=== PATIENT | male | born 1940 | race Caucasian/White ===

== ENCOUNTER → 2017-11-11 10:41 | Outpatient (CLI) | payer MEDICARE, SELFPAY ==
[2017-11-11 11:04] LABS: Add Manual Diff / Slide Review NO; Basophils Percent Auto 1.2 % (0-2); Hemoglobin 15.6 g/dL (13.5-17.5); Lymphocytes Percent Auto 19.7 % (25-40); Mean Corpuscular HGB Conc 36.2 % (30-36); Mean Corpuscular Hemoglobin 33.2 PG (26-34); Mean Corpuscular Volume 91.7 fL (80-100); Monocytes Percent Auto 9.8 % (3-14); Neutrophils Absolute Auto 4800 /uL (3000-5900); Neutrophils Percent Auto 67.3 % (50-75); Platelet Count 207 X10^3/uL (150-400); Red Blood Cell Count 4.69 X10^6/uL (4.5-5.9); Red Cell Distribution Width 12.6 % (11.6-14.8); White Blood Cell Count 7.1 X10^3/uL (4.5-11.0)
[2017-11-11 11:30] LABS: Alanine Aminotransferase 33 IU/L (21-72); Albumin 4.4 g/dL (3.5-5.0); Albumin Globulin Ratio 1.8 (1.0-2.8); Alkaline Phosphatase 50 U/L (38-126); Aspartate Aminotransferase 25 IU/L (17-59); BUN Creatinine Ratio 18.8 (6-22); Bilirubin Total 0.9 mg/dL (0.2-1.3); Blood Urea Nitrogen 15 mg/dL (9-20); Calcium 10.1 mg/dL (8.4-10.2); Carbon Dioxide 29 mmol/L (22-32); Chloride 100 mmol/L (98-107); Estimated Glomerular Filt Rate > 60.0 mL/min (>60); Globulin 2.4 g/dL (1.7-4.1); Glucose 86 mg/dL (80-110); HEMOLYSIS < 15 (0-50); Potassium 4.4 mmol/L (3.4-5.1); Sodium 139 mmol/L (137-145); Total Protein 6.8 g/dL (6.3-8.2)
[2017-11-11 11:57] LABS: Carcinoembryonic Antigen 0.5 ng/mL (0.1-3.0)
== END ==
PROVIDERS: Family Provider Internal Medicine; PCP Internal Medicine; Visit Provider Internal Medicine
DX: I10 Essential (primary) hypertension (principal); I48.0 Paroxysmal atrial fibrillation; C21.8 Malignant neoplasm of overlapping sites of rectum, anus and anal canal
CPT/HCPCS: 36415; 80053; 82378; 85025

== ENCOUNTER 2018-03-16 10:29 | Emergency (ER) | payer MEDICARE, SELFPAY ==
[2018-03-16 10:37] VITALS: BP 158/70; PULSE 79; RESP 22; TEMP 36.6; O2SAT 98; BMI 24.3
--- NOTE | 2018-03-16 11:06 | ED_ITS ---
HPI - Back Pain/Injury General Chief Complaint: Back Pain/Injury Stated Complaint: SCIATICA PAIN Time Seen by Provider: 03/16/18 10:46 Source: patient Mode of arrival: ambulatory Limitations: no limitations History of Present Illness HPI Narrative: Patient is 77-year-old male who presents with left-sided back pain. He says is radiating down his leg. It has been doing so for the last 6 days. He says it started when the power went out he had walked up 3 flights of stairs 5 times with groceries. He did not fall. He said the next day he woke up and noticed his back was very stiff. He has been taking 400 mg of ibuprofen every 4 hr without any relief. He has tried heat and ice as well as nothing seems to be helping. MD Complaint: back pain Related Data Previous Rx's Medication Instructions Recorded cyclobenzaprine 5 mg PO Q12H PRN #10 tab 03/16/18 prednisone 20 mg PO DAILY #5 tab 03/16/18 Allergies Allergy/AdvReac Type Severity Reaction Status Date / Time INGREDIENT: NDA - NO KNOWN Allergy Unknown Uncoded 06/30/17 12:00 DRUG ALLERGIES Review of Systems Review of Systems GENERAL: Denies chills,fever HEENT: Denies throat pain RESPIRATORY: Denies dyspnea, cough, wheezing CARDIOVASCULAR: Denies chest pain, palpitations GASTROINTESTINAL: Denies nausea, vomiting MUSCULOSKELETAL: See HPI SKIN: No rash, no laceration, no pruritus NEUROLOGIC: Denies weakness, dizziness, headache, numbness 8 point review of systems is negative except for those stated above and HPI PFSH Medical History Healthy adult (Acute) Social History Smoking Status: Current every day smoker Comment: Dr. Ramirez PCP Exam Initial Vital Signs Initial Vital Signs: Vital Signs Temperature 97.9 F 03/16/18 10:37 Pulse Rate 79 03/16/18 10:37 Respiratory Rate 22 03/16/18 10:37 Blood Pressure 158/70 H 03/16/18 10:37 Pulse Oximetry 98 03/16/18 10:37 GENERAL: Alert elderly male in [facility] appears uncomfortable HEENT: Head atraumatic,EOMI, pupils reactive CARDIOVASCULAR: Regular rate and rhythm without murmurs, rubs or gallops. RESPIRATORY: Breath sounds equal bilaterally, no wheezes rales or rhonchi. ABDOMEN: Soft, nontender. Normoactive bowel sounds all 4 quadrants. No guarding or rebound. : No CVA tenderness EXTREMITIES: Normal range of motion, no clubbing or edema. Neurovascularly intact BACK: No midline or vertebral tenderness left lumbar pain and left buttock pain NEUROLOGICAL: Alert and oriented x4.Normal gait and speech. Cranial nerves II through XII grossly intact. SKIN: Warm, dry, no laceration, no petechiae, no rashes or lesions. Course Orders Ordered: Discontinued Medications Ketorolac Tromethamine (Toradol) 15 mg IM NOW ONE Stop: 03/16/18 10:59 Last Admin: 03/16/18 11:12 Dose: 15 mg Vital Signs - 8 hr 03/16/18 11:36 Pulse Rate 69 Respiratory Rate 15 Blood Pressure [Left Arm] 138/77 Pulse Oximetry 98 Discharge Plan Departure Patient Disposition: Home Clinical Impression: Acute left-sided back pain with sciatica Discharge Date/Time: 03/16/18 11:42 Interventions: ED Discharge Assessment Last Done: 03/16/18 11:41 Instructions: DI for Back Pain With Sciatica Activity Restrictions/Additional Instructions: *You have been diagnosed with left-sided back pain with sciatic *What to do: Light activity is encouraged, no strenuous activity, you may require physical therapy if no improvement *Continue to take medications as directed Motrin 400-600 mg every 6-8 hours if needed for mild pain Flexeril 1 tab every 12 hr if needed for severe muscle spasm. This does cause drowsiness do not drive Prednisone 20 mg once a day for 5 days *Follow up with your primary care provider in 2-3 days *Return to ER if you should have increasing pain, numbness, tingling or any new , worsening or concerning symptoms Prescriptions: New prednisone 20 mg tablet 20 mg PO DAILY Qty: 5 RF: 0 cyclobenzaprine 5 mg tablet 5 mg PO Q12H PRN (Reason: muscle spasm) Qty: 10 RF: 0 Referrals: Jerry Corral MD [Primary Care Provider] -
[2018-03-16] MEDS: KETOROLAC 60 MG/2 ML VIAL 15 MG IM (11:12)
[2018-03-16 11:36] VITALS: BP 138/77; PULSE 69; RESP 15; O2SAT 98
== END 2018-03-16 11:42 | disposition home or self-care (01) ==
PROVIDERS: Emergency Provider Emergency Medicine; Family Provider Internal Medicine; PCP Internal Medicine
DX: M54.42 Lumbago with sciatica, left side (principal)
CPT/HCPCS: 96372; 99282; 99283; J1885

== ENCOUNTER → 2018-11-07 07:34 | Outpatient (CLI) | payer MEDICARE, SELFPAY ==
[2018-11-07 08:44] LABS: Add Manual Diff / Slide Review NO; Basophils Absolute Auto 100 /uL (0-100); Basophils Percent Auto 1.6 % (0-2); Eosinophils Absolute Auto 100 /uL (0-450); Eosinophils Percent Auto 2.2 % (2-4); Hematocrit 45.1 % (41-53); Hemoglobin 15.8 g/dL (13.5-17.5); Lymphocytes Absolute Auto 1700 /uL (1100-4500); Lymphocytes Percent Auto 29.1 % (25-40); Mean Corpuscular HGB Conc 35.1 % (30-36); Mean Corpuscular Hemoglobin 31.9 PG (26-34); Monocytes Absolute Auto 600 /uL (0-900); Monocytes Percent Auto 10.1 % (3-14); Neutrophils Absolute Auto 3300 /uL (1500-7000); Platelet Count 217 X10^3/uL (150-400); Red Blood Cell Count 4.96 X10^6/uL (4.5-5.9); Red Cell Distribution Width 13.4 % (11.6-14.8); White Blood Cell Count 5.8 X10^3/uL (4.5-11.0)
[2018-11-07 08:56] LABS: HEMOLYSIS < 15 (0-50)
[2018-11-07 09:00] LABS: Alanine Aminotransferase 13 IU/L (21-72); Albumin 4.5 g/dL (3.5-5.0); Albumin Globulin Ratio 1.6 (1.0-2.8); Alkaline Phosphatase 46 U/L (38-126); Aspartate Aminotransferase 21 IU/L (17-59); Bilirubin Total 0.9 mg/dL (0.2-1.3); Blood Urea Nitrogen 14 mg/dL (9-20); Carbon Dioxide 26 mmol/L (22-32); Estimated Glomerular Filt Rate > 60.0 mL/min (>60); Globulin 2.9 g/dL (1.7-4.1); Glucose 84 mg/dL (80-110); Potassium 4.3 mmol/L (3.4-5.1); Sodium 136 mmol/L (137-145); Total Protein 7.4 g/dL (6.3-8.2)
[2018-11-07 09:08] LABS: Chloride 98 mmol/L (98-107)
[2018-11-07 09:30] LABS: Carcinoembryonic Antigen 0.7 ng/mL (0.1-3.0)
== END ==
PROVIDERS: PCP Internal Medicine; Visit Provider Internal Medicine
DX: I10 Essential (primary) hypertension (principal); I48.0 Paroxysmal atrial fibrillation; C21.8 Malignant neoplasm of overlapping sites of rectum, anus and anal canal
CPT/HCPCS: 36415; 80053; 82378; 85025

== ENCOUNTER 2018-12-27 08:29 | Inpatient (IN) | payer MEDICARE, SELFPAY ==
[2018-12-27] VITALS (8 sets, daily range): BP systolic 101–145; BP diastolic 52–95; PULSE 63–124; RESP 16–37; TEMP 36.4–36.8; O2SAT 94–98; BMI 24.8
--- NOTE | 2018-12-27 08:48 | ED_ITS ---
HPI - Neuro Symptoms/Deficit General Chief Complaint: Neuro Symptoms/Deficit Stated Complaint: left side chest injury/slurred speach x1day Time Seen by Provider: 12/27/18 08:30 Source: patient and family Mode of arrival: Family Vehicle Limitations: no limitations History of Present Illness HPI Narrative: 78-year-old male, daily smoker with history of hypertension and AFib presents with his and another family member for evaluation of stroke- like symptoms. The patient was in his normal state of health until about 10:00 p.m. last night when he fell. It was a mechanical fall and he tripped and struck the left side of his forehead. He has full recall and denies any loss of consciousness nor nausea or vomiting. He was evaluated by his whom noted left-sided facial droop and trouble with speech. Patient refused transport last night but she was able to convince him to come in today. His pain is only on the left side of his anterior chest consistent with rib injury. His chief complaint and that which is noticed by the family is of some slurring of speech, facial droop and left-sided facial numbness. Patient had been on Eliquis until about 1 year ago but was taken off as he was having complications of bleeding from his stoma. On Anticoagulants: Yes (asa) Related Data Home Medications Medication Instructions Recorded Confirmed amlodipine 10 mg PO DAILY 12/27/18 12/27/18 ascorbic acid (vitamin C) 1,000 mg PO DAILY 12/27/18 12/27/18 aspirin 325 mg PO DAILY 12/27/18 12/27/18 cholecalciferol (vitamin D3) 4,000 unit PO DAILY 12/27/18 12/27/18 [Vitamin D3] losartan 50 mg PO DAILY 12/27/18 12/27/18 metoprolol tartrate 25 mg PO BID 12/27/18 12/27/18 montelukast 10 mg PO DAILY 12/27/18 12/27/18 triamterene-hydrochlorothiazid 0.5 tab PO DAILY 12/27/18 12/27/18 Allergies Allergy/AdvReac Type Severity Reaction Status Date / Time No Known Drug Allergies Allergy Verified 12/27/18 11:58 Review of Systems Constitutional Constitutional: Denies chills, Denies fatigue, Denies fever(s), Denies frequent falls, Denies lethargy and Reports weakness Eyes Eyes: Denies change in vision, Denies eye discharge, Denies irritation and Denies loss of vision ENT Ears, Nose, Mouth, and Throat: Denies change in voice, Denies dizziness, Denies neck pain, Denies sore throat and Denies throat swelling Cardiovascular Cardiovascular: Denies chest pain, Denies irregular heart rhythm, Denies lightheadedness, Denies palpitations, Denies dyspnea, Denies dyspnea on exertion and Denies orthopnea Respiratory Respiratory: Denies cough, Denies dyspnea, Denies dyspnea on exertion and Denies wheezing Gastrointestinal Gastrointestinal: Denies abdominal pain, Denies change in bowel habits, Denies diarrhea, Denies nausea and Denies vomiting Genitourinary Genitourinary: Denies hematuria, Denies flank pain, Denies urinary incontinence and Denies urinary urgency Musculoskeletal Musculoskeletal: Denies back pain, Denies muscle weakness, Denies neck pain, Denies numbness and Denies tingling Integumentary/Breasts Skin/Breast: Denies pruritus, Denies erythema, Denies rash and Denies wounds Neurologic Neurologic: Reports abnormal speech, Denies behavioral changes, Denies confusion, Denies dizziness, Denies frequent falls, Reports focal weakness, Denies loss of vision, Denies numbness, Denies tingling and Reports weakness Psychiatric Psychiatric: Denies anxiety, Denies behavioral changes, Denies confusion, Denies depression, Denies homicidal ideation and Denies suicidal ideation Endocrine Endocrine: Denies fatigue, Denies flushing and Denies palpitations Hematologic/Lymphatic Hematologic/Lymphatic: Denies easy bruising Allergic/Immunologic Allergic/Immunologic: Denies urticaria, Denies throat swelling and Denies wheezing [facility] Medical History (Updated 12/27/18 @ 12:32 by Aidan Jeffery DO) Colon cancer (Acute) HTN (hypertension) (Acute) Paroxysmal atrial fibrillation (Acute) Surgical History (Updated 12/27/18 @ 12:32 by Aidan Jeffery DO) H/O total colectomy (Acute) Social History household members: spouse Smoking Status: Former smoker Social History household members: spouse Smoking Status: Former smoker Exam Narrative Exam Narrative: GENERAL: [78] year old patient appears stated age. Well- nourished, well-developed patient, in mild distress. HEAD: Atraumatic. Normocephalic. EYES: Pupils equal round and reactive. Extraocular motions intact. No scleral icterus. No injection or drainage. ENT: Nose without bleeding, purulent drainage. Throat without erythema, tonsillar hypertrophy or exudate. Airway patent. NECK: Trachea midline. Non tender CARDIOVASCULAR: Tachycardic and irregular rhythm without murmurs, gallops, or rubs. RESPIRATORY: Clear to auscultation. Breath sounds equal bilaterally. No wheezes, rales, or rhonchi. GASTROINTESTINAL: Abdomen soft, non-tender, nondistended. EXTREMITIES: No edema or joint tenderness. BACK: Nontender without deformity or crepitance. No flank tenderness. NEURO: AOx3. SKIN: No rash or erythema of visible areas Initial Vital Signs Initial Vital Signs: Vital Signs Temperature 97.5 F L 12/27/18 08:39 Pulse Rate 106 H 12/27/18 08:39 Respiratory Rate 30 H 12/27/18 08:39 Blood Pressure 145/95 H 12/27/18 08:39 Pulse Oximetry 96 12/27/18 08:39 Scores NIH Stroke Scale Level of Conciousness: Alert, keenly responsive Ask month/age: Answers both questions correctly. Open/close eyes, close hand: Performs both tasks correctly Best gaze horizontal: Normal Visual ramires: No visual loss Facial palsy: Partial paralysis, total or near total paralysis of lower face Left arm drift: Drifts down, not to bed Right arm drift: No drift for full 10 sec Left leg drift: No drift for full 10 sec Right leg drift: No drift for full 10 sec Limb ataxia: Absent Sensory on face/arms/legs: Mild to moderate sensory loss, can tell touch Best language: No aphasia, normal Dysarthria: Mild to mod,some slurring Extinction or inattention: No abnormality Total NIH Stroke scale score: 5 Course Orders Ordered: Acetaminophen (Tylenol) 650 mg PO Q6HR PRN PRN Reason: As Needed for Fever/Mild Pain Amlodipine Besylate (Norvasc) 10 mg PO DAILY [facility] Ascorbic Acid (Vitamin C) 1,000 mg PO DAILY [facility] Heparin Sodium (Porcine) (Heparin) 5,000 unit SUBCUT BID [facility] Sodium Chloride (Normal Saline 0.9%) 1,000 mls @ 150 mls/hr IV CONT VINCENT Last Admin: 12/27/18 17:44 Dose: 150 mls/hr Documented by: Infusion: 12/27/18 17:44 Dose: 0 mls/hr Documented by: Infusion: 12/27/18 11:43 Dose: 0 mls/hr Documented by: Admin: 12/27/18 09:00 Dose: 150 mls/hr Documented by: ZEENAT Losartan Potassium (Cozaar) 50 mg PO DAILY [facility] Metoprolol Tartrate (Lopressor) 50 mg PO BID [facility] Montelukast Sodium (Singulair) 10 mg PO DAILY [facility] Vitamin D (Vitamin D3) 4,000 unit PO DAILY [facility] Discontinued Medications Metoprolol Tartrate (Lopressor) 25 mg PO NOW ONE Stop: 12/27/18 13:15 Last Admin: 12/27/18 13:39 Dose: 25 mg Documented by: AVILA Consultations Consultation #1: hospitalist happy to accept Vital Signs Vital signs: Vital Signs - 8 hr 12/27/18 08:39 12/27/18 09:36 Temperature 97.5 F L Pulse Rate 124 H 105 H Respiratory Rate 18 20 Blood Pressure 145/95 H Blood Pressure [Left Arm] 145/95 H 131/92 H Pulse Oximetry 98 96 MDM - Neuro Symptoms/Deficit Lab Data Result diagrams: 12/27/18 08:40 12/27/18 08:40 Labs: Lab Results 12/27/18 12/27/18 12/27/18 Range/Units 08:40 08:40 08:40 WBC 8.0 (4.5-11.0) X10^3/uL RBC 5.12 (4.5-5.9) X10^6/uL Hgb 16.5 (13.5-17.5) g/dL Hct 46.7 (41-53) % MCV 91.2 (80-100) fL MCH 32.3 (26-34) PG MCHC 35.4 (30-36) % RDW 13.2 (11.6-14.8) % Plt Count 220 (150-400) X10^3/uL Neut % (Auto) 66.4 (50-75) % Lymph % (Auto) 23.2 L (25-40) % [place] % (Auto) 8.1 (3-14) % Eos % (Auto) 1.1 L (2-4) % Baso % (Auto) 1.2 (0-2) % Neut # (Auto) 5300 (1134-3573) /uL Lymph # (Auto) 1800 (0669-6642) /uL [place] # (Auto) 600 (0-900) /uL Eos # (Auto) 100 (0-450) /uL Baso # (Auto) 100 (0-100) /uL PT 12.0 (10.1-12.7) SECONDS INR 1.0 (0.9-1.3) APTT 31 (26.4-36.2) SECONDS Sodium 137 (137-145) mmol/L Potassium 3.9 (3.4-5.1) mmol/L Chloride 97 L (98-107) mmol/L Carbon Dioxide 26 (22-32) mmol/L BUN 12 (9-20) mg/dL Creatinine 0.70 (0.66-1.25) mg/dL Estimated GFR > 60.0 (>60) mL/min BUN/Creatinine Ratio 17.1 (6-22) Glucose 144 H (80-110) mg/dL Calcium 10.3 H (8.4-10.2) mg/dL Point of Care Testing Glucose POC 90 Urine Dip Bedside Urine Glucose Negative Bedside Urine Bilirubin - Negative Bedside Urine Ketone - Negative Urine Specific [place] 1.010 Bedside Urine Occult Blood - Negative Bedside Urine pH 8.0 Bedside Urine Protein +/- 15 Bedside Urine Urobilinogen - Negative Bedside Urine Nitrite - Negative Bedside Urine Leukocytes - Negative Esterase Imaging Data CT scan - head: Radiologist's impression: [address] [address] [address] Scan Report Signed Patient: Vishal Park EMR#: [id number] : 1940Acct:[id number] Age/Sex: 78 / MDate of Service: 12/27/18 Loc: ED Accession Number: [id number] Procedure: CT head/brain wo con Ordering Provider: Misael Mon D.O. PROCEDURE: CT HEAD/BRAIN WO CON INDICATIONS: fall head injury, stroke symptoms on ASA TECHNIQUE: Noncontrast 4.5 mm thick angled axial sections acquired from the foramen magnum to the vertex, with coronal and sagittal reformats. For radiation dose reduction, the following was used: automated exposure control, adjustment of mA and/or kV according to patient size. COMPARISON: None. FINDINGS: Image quality: Excellent. CSF spaces: Basal cisterns are patent. No extra-axial fluid collections. The ventricles are symmetric in size and shape. Brain: No intracranial bleeds or masses. There is cerebral volume loss for age, with resultant ventricular and sulcal prominence. There are periventricular and deep white matter chronic small vessel ischemic changes. There is intracranial internal carotid artery atherosclerosis. Skull and face: Calvarium and visualized facial bones appear intact, without suspicious lesions. Sinuses: Visualized sinuses and mastoids are clear. IMPRESSION: No CT evidence of acute intracranial pathology. Age-appropriate atrophy and mild periventricular white matter microangiopathic changes. No acute skull fracture. Dictated by: Vikash Cabrera M.D. on 12/27/2018 at 9:11 Approved by: Vikash Cabrera M.D. on 12/27/2018 at 9:11 Discharge Plan Departure Patient Disposition: Admitted As Inpatient Clinical Impression: Cerebrovascular accident Qualifiers: CVA mechanism: unspecified Qualified Code(s): I63.9 - Cerebral infarction, unspecified Discharge Date/Time: 12/27/18 11:44 Admit Date/Time: 12/27/18 10:16 Admit Provider: Aidan Jeffery
[2018-12-27 08:51] LABS: Add Manual Diff / Slide Review NO; Basophils Absolute Auto 100 /uL (0-100); Basophils Percent Auto 1.2 % (0-2); Eosinophils Absolute Auto 100 /uL (0-450); Eosinophils Percent Auto 1.1 % (2-4); Hematocrit 46.7 % (41-53); Hemoglobin 16.5 g/dL (13.5-17.5); Lymphocytes Absolute Auto 1800 /uL (1100-4500); Lymphocytes Percent Auto 23.2 % (25-40); Mean Corpuscular HGB Conc 35.4 % (30-36); Mean Corpuscular Hemoglobin 32.3 PG (26-34); Mean Corpuscular Volume 91.2 fL (80-100); Monocytes Absolute Auto 600 /uL (0-900); Monocytes Percent Auto 8.1 % (3-14); Neutrophils Absolute Auto 5300 /uL (1500-7000); Neutrophils Percent Auto 66.4 % (50-75); Platelet Count 220 X10^3/uL (150-400); Red Blood Cell Count 5.12 X10^6/uL (4.5-5.9); Red Cell Distribution Width 13.2 % (11.6-14.8)
--- NOTE | 2018-12-27 08:51 | DI.CT.S_ITS ---
PROCEDURE: CT HEAD/BRAIN WO CON INDICATIONS: fall head injury, stroke symptoms on ASA TECHNIQUE: Noncontrast 4.5 mm thick angled axial sections acquired from the foramen magnum to the vertex, with coronal and sagittal reformats. For radiation dose reduction, the following was used: automated exposure control, adjustment of mA and/or kV according to patient size. COMPARISON: None. FINDINGS: Image quality: Excellent. CSF spaces: Basal cisterns are patent. No extra-axial fluid collections. The ventricles are symmetric in size and shape. Brain: No intracranial bleeds or masses. There is cerebral volume loss for age, with resultant ventricular and sulcal prominence. There are periventricular and deep white matter chronic small vessel ischemic changes. There is intracranial internal carotid artery atherosclerosis. Skull and face: Calvarium and visualized facial bones appear intact, without suspicious lesions. Sinuses: Visualized sinuses and mastoids are clear. IMPRESSION: No CT evidence of acute intracranial pathology. Age-appropriate atrophy and mild periventricular white matter microangiopathic changes. No acute skull fracture. Dictated by: Vikash Cabrera M.D. on 12/27/2018 at 9:11 Approved by: Vikash Cabrera M.D. on 12/27/2018 at 9:11
[2018-12-27] MEDS: SODIUM CHLORIDE 0.9% 1,000 ML 150 ML IV ×2 (09:00→17:44)
[2018-12-27 09:06] LABS: BUN Creatinine Ratio 17.1 (6-22); Blood Urea Nitrogen 12 mg/dL (9-20); Calcium 10.3 mg/dL (8.4-10.2); Carbon Dioxide 26 mmol/L (22-32); Chloride 97 mmol/L (98-107); Estimated Glomerular Filt Rate > 60.0 mL/min (>60); Glucose 144 mg/dL (80-110); HEMOLYSIS 34 (0-50); Potassium 3.9 mmol/L (3.4-5.1); Sodium 137 mmol/L (137-145)
[2018-12-27 09:12] LABS: PTT Partial Thromboplastin Tim 31 SECONDS (26.4-36.2)
--- NOTE | 2018-12-27 11:17 | PM.HP.1 ---
History of Present Illness History of Present Illness Date Patient Seen: 12/27/18 Time Patient Seen: 11:17 Chief complaint: left side chest injury/slurred speach Narrative: Mr. Park is a 78-year-old male with past medical history of hypertension, colon cancer s/p resection and chemo/radiation (dx 2004) with stoma, and AFib (dx one year ago, follows with Dr. Corral who presented to the ED the request of family for slurred speech, facial droop and facial numbness. Yesterday evening around 10:00 p.m. the patient had a mechanical fall where he tripped and hit the left side of his face, he denies any loss of consciousness or preceeding nausea, vomiting, palpitations, chest pain, dizziness. Afterwards he was noted to have a left-sided facial droop with trouble speaking by his . He did not want to come to the ER at that time, however his convinced him to come this morning. In the morning he also noted a headache that improved with Tylenol. The headache was dull, diffuse, and non-radiating. He denies any recent fever, chills, cough, shortness of breath, lower extremity edema, palpitations. Symptoms are improving at this time, and the patient has no further facial numbness at this time. His at bedside reports improved facial droop as well. He was taken off of Eliquis 1 years ago after complications of bleeding from his stoma. Patient History Medical History (Updated 12/27/18 @ 12:32 by Aidan Jeffery DO) Colon cancer (Acute) HTN (hypertension) (Acute) Paroxysmal atrial fibrillation (Acute) Surgical History (Updated 12/27/18 @ 12:32 by Aidan Jeffery DO) H/O total colectomy (Acute) Social History Smoking Status: Current every day smoker Family & Social History Safety & Behavioral: Feels Safe in Current Yes Environment Tobacco & Substance use: Smoking Status Former smoker, 15 pack year history, last smoked 1969. alcohol intake frequency 0-2 drinks per day Substance Use Type does not use Meds Home Medications and Allergies Home Medications Medication Instructions Recorded Confirmed Type amlodipine 10 mg PO DAILY 12/27/18 12/27/18 History ascorbic acid (vitamin C) 1,000 mg PO DAILY 12/27/18 12/27/18 History aspirin 325 mg PO DAILY 12/27/18 12/27/18 History cholecalciferol (vitamin D3) 4,000 unit PO DAILY 12/27/18 12/27/18 History [Vitamin D3] losartan 50 mg PO DAILY 12/27/18 12/27/18 History metoprolol tartrate 25 mg PO BID 12/27/18 12/27/18 History montelukast 10 mg PO DAILY 12/27/18 12/27/18 History triamterene-hydrochlorothiazid 0.5 tab PO DAILY 12/27/18 12/27/18 History Allergies Allergy/AdvReac Type Severity Reaction Status Date / Time No Known Drug Allergies Allergy Verified 12/27/18 11:58 Review of Systems Review of Systems Narrative: All other systems reviewed with the patient and are negative unless otherwise stated. Exam Vital Signs (past 8 hours): - 12/27/18 08:39 12/27/18 09:36 12/27/18 11:05 Temperature 97.5 F L Pulse Rate 124 H 105 H 112 H Respiratory Rate 18 20 37 H Blood Pressure 145/95 H Blood Pressure [Left Arm] 145/95 H 131/92 H 135/92 H Pulse Oximetry 98 96 94 Oxygen Delivery Method Room Air Narrative Exam Narrative: GENERAL APPEARANCE: Elderly male. Well developed, well nourished, in no acute distress. SKIN: Inspection of the skin reveals no rashes, ulcerations or petechiae. Minor skin bruising LUE on arms. HEENT: The sclerae were anicteric and conjunctivae were pink and moist. Extraocular movements were intact and pupils were equal, round with normal accommodation. External inspection of the ears and nose showed no scars, lesions, or masses. Lips, teeth, and gums showed normal mucosa. The oral mucosa, hard and soft palate, tongue and posterior pharynx were unremarkable. NECK: Supple and symmetric. There was no thyroid enlargement, and no tenderness, or masses were felt. CHEST: Normal AP diameter and normal contour without any kyphoscoliosis. LUNGS: Auscultation of the lungs revealed no wheezes, rhonchi, or rales. CARDIOVASCULAR: Tachycardic, irregularly irregular rhythm. Peripheral pulses were 2+ and symmetric. ABDOMEN: Soft and nontender with normal bowel sounds. No ascites was noted. MUSCULOSKELETAL: There was no tenderness or effusions noted. Muscle strength and tone were normal. EXTREMITIES: No cyanosis, clubbing or edema. NEUROLOGIC: Alert and oriented x 3. Normal affect. Strength is +5/5 in the Upper Extremities and Lower Extremities Bilaterally. Sensation to touch was normal. Mild and improving L facial droop. CN2-12 grossly intact bilaterally. Please see stroke scale documented below. Objective ECG Impression: atrial fibrillation with rapid ventricular response. Rate 119. Imaging CT scan - head: My impression: age related atrophy. No acute process. Radiologist's impression: Age related atrophy, no acute ischemic or hemorrhagic processes. Labs Result Diagrams: 12/27/18 08:40 12/27/18 08:40 Labs: Laboratory Results - last 24 hr 12/27/18 12/27/18 12/27/18 08:40 08:40 08:40 WBC 8.0 RBC 5.12 Hgb 16.5 Hct 46.7 MCV 91.2 MCH 32.3 MCHC 35.4 RDW 13.2 Plt Count 220 Neut % (Auto) 66.4 Lymph % (Auto) 23.2 L Rhea % (Auto) 8.1 Eos % (Auto) 1.1 L Baso % (Auto) 1.2 Neut # (Auto) 5300 Lymph # (Auto) 1800 Rhea # (Auto) 600 Eos # (Auto) 100 Baso # (Auto) 100 PT 12.0 INR 1.0 APTT 31 Sodium 137 Potassium 3.9 Chloride 97 L Carbon Dioxide 26 BUN 12 Creatinine 0.70 Estimated GFR > 60.0 BUN/Creatinine Ratio 17.1 Glucose 144 H Calcium 10.3 H Assessment & Plan Assessment & Plan narrative: Mr. Park is a 78-year-old male with past medical history of hypertension, colon cancer s/p resection and chemo/radiation (dx 2004) with stoma, and AFib (dx approx. 1 year ago, follows with Dr. Corral) who presented to the ED the request of family for slurred speech, facial droop and facial numbness. He is admitted as inpatient as symptoms are still continuing, however they are slightly improved. His symptoms are currently consistent with a stroke, most likely secondary to his AFib, however if his symptoms resolve by 10:00 p.m. this will be classified as a TIA. 1. Slurred speech, facial droop, facial numbness, acute, present on admission, improving -patient presented with a stroke scale of 5, slurred speech facial droop and facial numbness. This is likely going to be a stroke, most likely embolic secondary to AFib, however this could also be a TIA depending on when his symptoms fully resolve. His stroke scale on my exam was 4. - MRI stroke to evaluate for etiology, most likely embolic but could be ischemic. - PT/OT/Speech, reportedly failed swallow eval in ED - TSH, a1c, lipids for risk stratification - obtain TTE given patient is in afib with RVR - maximize medical therapy for afib - optimized medical therapy after CVA or TIA, depending on symptoms - patient had bleeding complications on eliquis previously from his stoma. Will have to have risk/benefit discussions regarding ongoing management. Consider plavix therapy alone as well. - TTE to evaluate for clot. 2. paroxysmal atrial fibrillation, chronic, present on admission - Patient currently in atrial fibrillation, occasional rates to the 130s. - f/u TSH as above - obtain TTE - increase metoprolol dosing to 50 mg BID (home dosing 25 mg BID) 3. HTN, chronic, present on admission - - continue home medications, allow permissive hypertension however blood pressure is currently controlled. Code: Full DVT: HSQ Dispo: admit as inpatient as stay is expected to exceed two midnights. Time Spent With Patient Time with patient: Greater than 35 minutes Scores NIHSS Level of Conciousness: Alert, keenly responsive Ask month/age: Answers both questions correctly. Open/close eyes, close hand: Performs both tasks correctly Best gaze horizontal: Normal Visual ramires: No visual loss Facial palsy: Minor paralysis, flattened nasolabial fold, asymmetry on smiling Left arm drift: No drift for full 10 sec Right arm drift: No drift for full 10 sec Left leg drift: Drifts down, not to bed Right leg drift: No drift for full 5 sec Limb ataxia: Absent Sensory on face/arms/legs: Normal, no sensory loss Best language: Mild to moderate, slurs some words Dysarthria: Mild to mod,some slurring Extinction or inattention: No abnormality Total NIH Stroke scale score: 4
--- NOTE | 2018-12-27 12:20 | DI.ECHO.S_ITS ---
[facility]---------+ [facility] +---------+ : : [address] [place] : : : : [id number] : : : : Phone: [phone]+ Echocardiogram Report + + :Name: KEN REARDON Study Date: 12/28/2018 Height: 70 in : :[facility] Exam Location: [place] Weight: 175 lb : : Gender: Male BSA: 2.0 m2 : :: 1940 Age: 78 yrs BP: 130/91 mmHg: :Reason For Study: AFIB : : Performed By: Donato Galvan : :Referring: ELIZABETH GARRETT : + + Interpretation Summary The patient was in atrial fibrillation with rapid ventricular response during the exam with a heart rate exceeding 100 bpm. The left ventricle is mildly dilated. The ejection fraction is estimated to be 40-45%. Compared to the prior exam, the left ventricular function is reduced. There is mild to moderate global hypokinesis of the left ventricle. The right ventricle is mildly dilated. Right ventricular systolic function is mildly reduced. There is mild to moderate mitral regurgitation. There is moderate tricuspid regurgitation. Compared to the prior echo exam, there has been an increase in TR severity. The right ventricular systolic pressure is estimated to be at least 28 mmHg based on an estimated right atrial pressure of 3 mm Hg. Procedure: A two-dimensional transthoracic echocardiogram with color flow and Doppler was performed. The study quality was technically adequate. Comparison is made with the echocardiogram of 01/03/15. The patient was in atrial fibrillation with rapid ventricular response during the exam with a heart rate exceeding 100 bpm. The patient had a heart rate of 94-131 beats per minute. Left Ventricle: There is normal left ventricular wall thickness. The left ventricle is mildly dilated. There is no thrombus. The ejection fraction is estimated to be 40-45%. Compared to the prior exam, the left ventricular function is reduced. There is mild to moderate global hypokinesis of the left ventricle. E/E' med: 11.6. Right Ventricle: The right ventricle is mildly dilated. Right ventricular systolic function is mildly reduced. Atria: The left atrium is moderately dilated. The left atrium has mildly increased in size since the prior echo exam. The right atrium is severely dilated. The right atrium has significantly increased in size since the prior echo exam. The interatrial septum is intact with no evidence for an atrial septal defect. Mitral Valve: There is mild mitral annular calcification. There is mild to moderate mitral regurgitation. Aortic Valve: The aortic valve is trileaflet. The aortic valve opens well. The aortic valve is mildly calcified. There is discrete nodular thickening of the non- coronary cusp. There is no aortic valve stenosis. There is mild aortic regurgitation. Tricuspid Valve: The tricuspid valve is normal. There is moderate tricuspid regurgitation. The right ventricular systolic pressure is estimated to be at least 28 mmHg based on an estimated right atrial pressure of 3 mm Hg. Compared to the prior echo exam, there has been an increase in TR severity. Pulmonic Valve: The pulmonic valve is not well seen, but is grossly normal. There is trace pulmonic regurgitation. Great Vessels: The aortic root is normal size. The dimensions of the ascending aorta are normal. The pulmonary artery is normal size. The IVC is of normal diameter and collapses greater than 50% with a sniff. This suggests a low right atrial pressure of 3 mm Hg. Pericardium/ Pleura There is no pericardial effusion. There is no pleural effusion. MMode/2D Measurements & Calculations LVIDd: 5.8 cm LVOT diam: 2.4 cm LVIDs: 4.7 cm Ao root diam: 3.5 cm FS: 19.8 % Aortic Jxn: 2.9 cm EPSS: 1.6 cm asc Aorta Diam: 3.4 cm IVSd: 0.93 cm Ao Arch Diam (Prox Trans): 3.1 cm LVPWd: 0.88 cm LV hernandez. diameter/BSA (cm/m^2): 3.0 LV sys. diameter/BSA (cm/m^2): 2.4 LA dimension: 4.4 cm RA long axis: 6.3 cm LA A2 area: 28.0 cm2 RA area: 29.2 cm2 LA A4 area: 25.3 cm2 RA vol: 114.6 ml LA length (vol): 7.1 cm RA : 58.1 ml/m2 LA vol: 84.4 ml IVC diam: 2.0 cm LA vol index: 42.8 ml/m2 Doppler Measurements & Calculations Ao V2 max: 120.0 cm/sec LVOT Max Cesario: 72.8 cm/sec Ao V2 mean: 94.1 cm/sec LV V1 max P.1 mmHg Ao max P.8 mmHg LV V1 VTI: 13.2 cm Ao mean P.7 mmHg YONG(I,D): 3.2 cm2 Ao V2 VTI: 18.3 cm YONG(V,D): 2.7 cm2 sev ratio: 0.72 YONG indexed to BSA (cm^2/m^2): 1.6 MV E max cesario: 92.9 cm/sec TR max cesario: 250.9 cm/sec MV A max cesario: 1.2 cm/sec TR max P.2 mmHg MV E/A: 75.0 PA V2 max: 68.9 cm/sec Med Peak E' Cesario: 8.0 cm/sec PA V2 mean: 46.7 cm/sec E/E' med: 11.6 PA mean P.97 mmHg Lat Peak E' Cesario: 10.6 cm/sec PA pr(Accel): 56.5 mmHg E/E' lat: 8.7 PA Accel Time: 0.05 sec E/e' average: 10.2 MV dec time: 0.14 sec SV(LVOT): 59.1 ml Reading Physician:11:50 AM
[2018-12-27] MEDS: METOPROLOL IR 25 MG TABLET PO (13:39)
--- NOTE | 2018-12-27 17:00 | PT.IIE ---
Surgical History (Last Updated 12/27/18 @ 12:32 by Aidan Jeffery DO) H/O total colectomy (Acute) Medical History (Last Updated 12/27/18 @ 12:32 by Aidan Jeffery DO) Colon cancer (Acute) HTN (hypertension) (Acute) Paroxysmal atrial fibrillation (Acute) Physical Therapy Inpatient Evaluation/Re-Eval M1 PT/OT-IP Prior Functional Status Start: 12/27/18 16:40 Freq: NEEDED Status: Active Protocol: Document 12/27/18 16:40 [facility] (Rec: 12/27/18 17:05 [facility] [id number]) Medical Review Prior Functional Status Medical History Reviewed Yes Communication K[place] is not his primary language but able to speak and think in [place]. Mobility and Gait Per pt walked 3 miles yesterday with no device. Activities of Daily Living and IADL's Completely independent and no devices. Pt takes his own medications, pay the bills by automatic bill payments, drives, takes out the garbage, and cooks. 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 Social History Household Members spouse Living Arrangements Apartment/Condo Number of Stairs To Enter/Railing? 2 flight of steps to get up to condo versus use of elevator. Pt usually takes the elevator up and walks down the two flight with left hand rail going down. Pt's insistent that there are 2 rails that pt can hold to wlka down the stairs. 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 M1 PT/OT-IP Prior Functional Status Start: 12/27/18 17:48 Freq: NEEDED Status: Active Protocol: Document 12/27/18 17:00 AB (Rec: 12/27/18 18:05 AB [id number]) Medical Review Prior Functional Status Medical History Reviewed Yes Communication able to make needs known Mobility and Gait pt stated that he is independent with all mobilities and ambulation without AD. Per OT: pt stated that he walks 3 miles a day Activities of Daily Living and IADL's Per OT's note: Completely independent and no devices. Pt takes his own medications, pay the bills by automatic bill payments, drives, takes out the garbage, and cooks. 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 Social History Household Members spouse Living Arrangements Apartment/Condo Number of Stairs To Enter/Railing? pt stated that there is an elevator that he can use to get to his condo level. Home Environment Standard Height Toilet,Walk in Shower,Built-In Shower Seat Employment Status Retired M2 PT-IP Current Condition Start: 12/27/18 17:48 Freq: NEEDED Status: Active Protocol: Document 12/27/18 17:00 AB (Rec: 12/27/18 18:05 AB [id number]) Physical Therapy Current Condition Current Condition Evaluation Date 12/27/18 Treatment Diagnosis CVA; difficulty in walking Onset Date 12/27/18 M3 PT-IP Subjective Start: 12/27/18 17:48 Freq: NEEDED Status: Active Protocol: Document 12/27/18 17:00 AB (Rec: 12/27/18 18:05 AB [id number]) Subjective Physical Therapy Visit Type Type Initial Evaluation Visit Start Time 17:00 Visit Stop Time 17:15 Total Visit Minutes 15 Number of RN NEW GRADUATE Visits 0 Physical Therapy Visit Comments Patient Comments pt agreeable to do PT Therapy Pain Assessment Pain Present Pain Present Denied Pain M4 PT-IP Mobility and Gait Start: 12/27/18 17:48 Freq: NEEDED Status: Active Protocol: Document 12/27/18 17:00 AB (Rec: 12/27/18 18:05 AB [id number]) PT-Bed Mobility Assessment Supine to Sit Supine to Sit Independent Sit to Supine Sit to Supine Independent PT-Transfer Assessment Sit to and From Stand Sit to and from Stand Standby Assistance Equipment Transfer Assistive Device Gait Belt Orthotic/Prosthetic Devices or Brace: No Gait Assessment Gait Gait Assistance Required: Standby Assistance Distance (Feet) 40 Able to Maintain Weight Bearing Status Yes During Gait Assistive Devices Assistive Device None,Gait Belt Orthotic/Prosthetic Devices or Brace: No Gait Deviations General Gait Pattern Antalgic Factors Limiting Gait Function Factors Limiting Gait Function Poor Balance Comments Gait Comments pt presents with slight antalgic gait but without LOB PT-Balance Assessment Sitting Balance and Reactions Static Sitting Balance Ability Normal Dynamic Sitting Balance Ability Normal Standing Balance and Reactions Static Standing Balance Ability Good Dynamic Standing Balance Ability Fair Device Used without AD Balance Tests Single Limb Standing unable to maintain standing on either LE without LOB Functional Assessments Functional Tests Tinetti Balance and Gait Assessment bal score: 1416 gait score: 12 total score: 28 Other Functional Tests Performed tinetti balance assessment: which relates to low fall risk M5 PT-IP Objective Assessments Start: 12/27/18 17:48 Freq: NEEDED Status: Active Protocol: Document 12/27/18 17:00 AB (Rec: 12/27/18 18:05 AB [id number]) Orientation Orientation/Cognition Level of Alertness Alert Orientation Name,Age,Place,Situation Language Function Ability No Deficits Noted Safety Awareness Understands Safety Issues Memory Description No Deficits Noted Gross Range of Motion Lower Extremity ROM Assessment Within Functional Limits Strength Lower Extremity Strength Assessment Within Functional Limits Hip 4+/5 Knee 4+/5 Sensation Assessment Sensation Gross Sensation WNL Muscle Tone Muscle Tone WNL Yes M6 PT-IP Treatment Start: 12/27/18 17:48 Freq: NEEDED Status: Active Protocol: Document 12/27/18 17:00 AB (Rec: 12/27/18 18:05 AB [id number]) Physical Therapy Treatment Education Education Provided Safety M7 PT-IP Assessment and Plan Start: 12/27/18 17:48 Freq: NEEDED Status: Active Protocol: Document 12/27/18 17:00 AB (Rec: 12/27/18 18:05 AB [id number]) PT Summary Assessment and Plan Potential Rehabilitation Potential Good Status of Condition at Evaluation Stable Summary Impairments Pain,ROM,Strength,Balance, Coordination,Transfers,Gait, Activity Tolerance Assessment Summary pt requiring SBA with mobility . pt has LOB with high level balance activities. Will continue to assess pt's consistency with level of assistance and will also benefit from standing balance activities to improve dynamic balance and safety. Pt plans to go home with spouse to assist him and may go home when medically stable. Goals Transfer Goal Independent Gait Goal Independent Gait Distance 300 Other Goals up/down 13 steps with 1 rail SBA Days to Meet Goals 3 Frequency of Treatment Frequency Of Treatment Once a Day Treatment Plan Physical Therapy Treatment Plan Bed Mobility Training,Transfer Training,Gait Training, Therapeutic Exercise,Balance Retraining,Post Op Education, Discharge Planning,Hot or Cold Pack,Neuromuscular Re-ed, Coordination Retraining,Manual Therapy Other Recommendations and Next Treatment standing balance, long Focus distance ambulation without AD , stair climbing Recommendations To Nursing Amount of Assist Needed 1 Person Assist Discharge Recommendations PT Discharge Recommendations Home
--- NOTE | 2018-12-27 17:06 | OT.IP.EVAL ---
Past Medical History (Last Updated 12/27/18 @ 12:32 by Aidan Jeffery DO) Colon cancer (Acute) HTN (hypertension) (Acute) Paroxysmal atrial fibrillation (Acute) Surgical History (Last Updated 12/27/18 @ 12:32 by Aidan Jeffery DO) H/O total colectomy (Acute) Occupational Therapy Inpatient Evaluation/Re-Eval M1 PT/OT-IP Prior Functional Status Start: 12/27/18 16:40 Freq: NEEDED Status: Active Protocol: Document 12/27/18 16:40 [facility] (Rec: 12/27/18 17:05 [facility] [id number]) Medical Review Prior Functional Status Medical History Reviewed Yes Communication [place] is not his primary language but able to speak and think in [place]. Mobility and Gait Per pt walked 3 miles yesterday with no device. Activities of Daily Living and IADL's Completely independent and uses no devices. Pt takes his own medications, pay the bills by automatic bill payments, drives, takes out the garbage, and cooks. 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 Social History Household Members spouse Living Arrangements Apartment/Condo Number of Stairs To Enter/Railing? 2 flight of steps to get up to condo versus use of elevator. Pt usually takes the elevator up and walks down the two flight with left hand rail going down. Pt's insistent that there are 2 rails that pt can hold to wlka down the stairs. 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 M2 OT-IP Current Condition Start: 12/27/18 16:40 Freq: Status: Active Protocol: Document 12/27/18 16:40 [facility] (Rec: 12/27/18 17:05 [facility] [id number]) Occupational Therapy Current Condition Current Condition Evaluation Date 12/27/18 Treatment Diagnosis left side chest injury,slurred speech Diagnosis Onset Date 12/27/18 Weight Bearing Status Weight Bearing Status Weight Bear as Tolerated M3 OT- IP Subjective and Pain Start: 12/27/18 16:40 Freq: Status: Active Protocol: Document 12/27/18 16:40 [facility] (Rec: 12/27/18 17:05 [facility] [id number]) OT- Subjective Occupational Therapy Visit Type Type Initial Evaluation Visit Start Time 15:55 Visit Stop Time 16:33 Total Visit Minutes 38 Occupational Therapy Visit Comments Patient Comments Pt states feeling better since this morning but not quite back to normal. Patient/Caregiver Goals To go home. OT Pain Assessment Pain When Pain Assessed At Rest Pain Present Pain Present Denied Pain M4 OT- IP ADL's Start: 12/27/18 16:40 Freq: Status: Active Protocol: Document 12/27/18 16:40 [facility] (Rec: 12/27/18 17:05 [facility] [id number]) OT [id number] Comments OT Self-Feeding Comments No at meal time. Noted left facial droop and drooling from pt's mouth. Pt unaware and needing cues to swallow and be more aware of saliva on left side of his mouth. OT ADL-Grooming General Evaluation Grooming Ability Standby Assistance Comments OT Grooming Comments SBA while standing at the sink for all grooming needs. OT ADL-Oral Care General Eval Oral Care Ability Independent OT ADL-Dressing General Eval Lower Body Dressing Ability Standby Assistance Comments OT Dressing Comments Pt increased time to albert/doff socks from low chair and having difficulty to albert/doff shoes from higher bed as decreased dynamic balance notes in his trunk. OT ADL-Toileting General Evaluation Toileting Ability Standby Assistance Comments OT Toileting Comments Pt states sits to urinate and able to take care of his own colostomy bag. Pt needing use of grab bar to help sit and stand up from the toilet with SBA. OT ADL-Bathing Comments OT Bathing Comments To attempt tomorrow. M5 OT- IP IADL's Start: 12/27/18 16:40 Freq: Status: Active Protocol: Document 12/27/18 16:40 [facility] (Rec: 12/27/18 17:05 [facility] [id number]) OT-Instrumental Activities of Daily Living Home Safety Awareness Ability to Problem Solve Emergency Able to Problem Solve Situations Home Safety Comments Pt able to answer all home safety questions with 100% accuracy. Medication Management Medication Management Comments Pt does his own , but who is a retired nurse states she will supervise him as needed. Money Management Money Management Comments Pt does automatic bill payment at home. Meal Preparation Meal Preparation Comments Pt states cooks. Driving Driving Comments See comments below. M6 OT- IP Functional Cognition Start: 12/27/18 16:40 Freq: Status: Active Protocol: Document 12/27/18 16:40 [facility] (Rec: 12/27/18 17:05 [facility] [id number]) Cognitive Factors Limiting Selfcare Function Cognitive Ability Level of Alertness Alert Patient Orientation Name,Place,Situation Attention Span Ability Capable of Focused Attention, Capable of Sustained Attention Ability to Follow Commands Able to Follow Multi-Step Commands Memory Description No Deficits Noted Safety Awareness Underestimates Need for Assistance Cognitive Comments Cognitive Assessment Comments Pt scored 98 seconds on [place] Making Part B which implies mild to moderate impairment with executive thinking, mental flexibility and speed of processing. Pt's states will not let him drive at this time. OT- Vision and Hearing OT- Hearing Assessment OT- Hearing Assessment WFL OT- Vision Assessment Visual Acuity Glasses For Reading Visual Attentiveness WFL Occular Pursuits WFL Visual Convergence WFL Visual Vuong WFL M7 OT- IP Mobility and Balance Start: 12/27/18 16:40 Freq: Status: Active Protocol: Document 12/27/18 16:40 [facility] (Rec: 12/27/18 17:05 [facility] [id number]) OT- Bed Mobility Assessment Rolling Level of Assistance Standby Assistance Supine to Sit Supine to Sit Assist Standby Assistance Sit to Supine Sit to Supine Assist Standby Assistance Scooting Scooting to Edge of Bed Standby Assistance OT-Transfer Assessment Sit to and From Stand Sit to and from Stand Standby Assistance Transfers Transfer Ability Standby Assistance,Contact Guard Assistance Technique Transfer Destination Bed,Toilet Transfer Technique Stand Step Pivot Devices Transfer Assistive Devices Gait Belt Comments Mobility Comments Pt SBA to stand from bed and needing CGA at times while walking without a device a a little unsteady on his feet. Pt normally wears slipper at home. OT- Balance Assessment Sitting Balance and Reactions Static Sitting Balance Ability Normal Dynamic Sitting Balance Ability Good Standing Balance and Reactions Static Standing Balance Ability Good Dynamic Standing Balance Ability Fair Comments Other Balance Tests/Deviations/Treatment Pt able to slate picker pen from : the floor with SBA, Pt able to stand on right foot 6 seconds and left foot 3 second at a time. Pt having more difficulty to turn around in a [place] 360 to the left versus right. While sitting on a chair without airs, noted pt tends to lean into lateral tilt to the left and needing cues for midline. M8 OT- IP Objective Assessments Start: 12/27/18 16:40 Freq: Status: Active Protocol: Document 12/27/18 16:40 [facility] (Rec: 12/27/18 17:05 [facility] [id number]) OT Gross Range of Motion Upper Extremity Range of Motion Assessment Within Functional Limits OT Strength Upper Extremity Strength Assessment Left Impaired Comments Strength Comments RUE 4+/5 and LUE 44/5 to 4-/5 distally. OT- Coordination Assessment Upper Extremity Finger to Nose Test Within Functional Limits OT Sensation Assessment Comments Summary Comments WFL for light touch on BUE. M9 OT- IP Assessment and Plan Start: 12/27/18 16:40 Freq: Status: Active Protocol: Document 12/27/18 16:40 [facility] (Rec: 12/27/18 17:05 [facility] [id number]) OT Summary Assessment and Plan Potential Rehabilitation Potential Good Analytic Complexity at Evaluation Low Summary OT Impairments Functional Mobility,Dressing, Toileting,Bathing Progress Towards Goals Progressing Toward Goals Assessment Summary Pt low complexity and deficits are decreased dynamic balance , having drooling to left side of his mouth, and mild weakness to LUE. Pt also has two flight of steps in order to get up/down from his apartment. Pt still pending medical tests, and if stable to go home with his . Goals Self-Feeding Goal Independent Grooming Goal Independent Dressing Goal Independent Toileting Goal Independent Bathing Goal Standby Assistance Toilet Transfer Goal Independent Shower Transfer Goal Independent Patient/Caregiver Education Goal Caregiver Independent Assisting Patient Days to Meet Goals 5 Frequency of Treatment Frequency Of Treatment Once a Day Treatment Plan OT Treatment Plan ADL Training,Functional Mobility,Patient/Family Education,Discharge Planning Other Treatment Recommendations and Next shower Treatment Focus Discharge Recommendations OT Discharge Recommendations Home with Assistance
--- NOTE | 2018-12-27 17:30 | ST.IPIE ---
Visit Care Team Role Provider Type Jerry Corral MD Primary Care Provider Physician Specialty: Internal Medicine Address: [address] [place] [address], [id number] Email: [email or web address] Misael Mon DO Emergency Provider Physician Specialty: Emergency Medicine Address: [address] [place] [address], [id number] Email: [email or web address] Aidan Jeffery DO Admit Provider Physician Attending Provider Specialty: Internal Medicine Address: [address] [place] [address], [id number] Email: [email or web address] Past Medical History (Last Updated 12/27/18 @ 12:32 by Aidan Jeffery DO) Colon cancer (Acute Medical) HTN (hypertension) (Acute Medical) Paroxysmal atrial fibrillation (Acute Medical) 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 MRI to be completed tomorrow. Subjective Observations Patient alert and oriented. Plesant and cooperative during the eval. Evaluation Liquids Trialed Thin Solids Trialed Puree,Dysphagia Mechanical, Dysphagia Advanced,Regular Administration Type Self-Feeding Oral Impairment Mildly Impaired Oral Strategies Lingual Sweep Oral Phase Comments Extended mastication with dysphagia mechanical and advanced textures. Patient was observed to masticate on left side only. He reports this is his baseline due to food getting stuck between two right lower teeth. Moderate oral residue requiring multiple swallows. Patient denied any lingering facial numbness or weakness. Pharyngeal Phase Comments Mild throat clearing following consecutive cup sips of liquids and mixed consistency (peaches in juice). No overt s /sx of aspiration; however, aspiration precautions recommended as throat clear could indicate pharyngeal residue or trace aspiration. Lungs are clear per nursing and patient denies history of dysphagia or pneumonia. Findings Impressions Oral mech revealed structures are symmetrical and strength and ROM are WNL. Informal assessment of speech was completed. Patient reports his symptoms have resolved and his speech is back to baseline. Intelligibility was >90% in conversation with most unintelligible utterances related to patient's foreign accent. No impairments in receptive language, expressive language or word finding observed in conversation. Patient's mastication is markedly slow and multiple swallows were needed for oral clearance of solid textures; however, patient denies any recent changes in swallowing and reports this is his baseline. Though abnormal, his swallow appears functional without significant concern for choking or aspiration. Still, aspiration precautions are recommended and ongoing assessment is warranted. Education was provided regarding recommendations for small bites/sips, slow rate and lingual sweep as well as multiple swallows to clear residue. Patient verbalized understanding. Diet Recommendations Liquids Order Thin Diet Order Regular Medication Recommendations As Tolerated Additional Dietary Needs Reminders to Use Strategies Aspiration Precautions Recommended Precautions Upright at 90 Degrees, Alternate Liquids/Solids,Small Bites/Sips,Double Swallow Treatment Plan Placement Recommendations after Home Discharge Appropriate for Therapy Yes Therapy Recommendations Follow 1-2x for ongoing assessment and education as needed. Monitor for s/sx of aspiration. Dysphagia Goals Vishal will recall and implement aspiration precautions as educated on without reminders/cueing in order to safely consume a meal and minimize aspiration risk.
[2018-12-27] MEDS: HEPARIN 5,000 UNIT/ML VIAL 5000 UNIT SUBCUT (20:53)
[2018-12-27] MEDS: METOPROLOL IR 25 MG TABLET 50 MG PO (20:54)
[2018-12-27] MEDS: ACETAMINOPHEN 325 MG TABLET 650 MG PO (21:58)
[2018-12-28] VITALS (8 sets, daily range): BP systolic 113–149; BP diastolic 69–92; PULSE 64–116; RESP 16–18; TEMP 36.4–37.9; O2SAT 94–98
[2018-12-28] MEDS: SODIUM CHLORIDE 0.9% 1,000 ML 150 ML IV (02:26)
[2018-12-28 05:21] LABS: Add Manual Diff / Slide Review NO; Basophils Absolute Auto 100 /uL (0-100); Basophils Percent Auto 0.8 % (0-2); Eosinophils Absolute Auto 0 /uL (0-450); Eosinophils Percent Auto 0.3 % (2-4); Hematocrit 45.4 % (41-53); Lymphocytes Absolute Auto 1100 /uL (1100-4500); Lymphocytes Percent Auto 11.4 % (25-40); Mean Corpuscular HGB Conc 35.3 % (30-36); Mean Corpuscular Hemoglobin 32.4 PG (26-34); Mean Corpuscular Volume 91.7 fL (80-100); Monocytes Absolute Auto 600 /uL (0-900); Monocytes Percent Auto 6.2 % (3-14); Neutrophils Absolute Auto 7600 /uL (1500-7000); Neutrophils Percent Auto 81.3 % (50-75); Platelet Count 195 X10^3/uL (150-400); Red Blood Cell Count 4.95 X10^6/uL (4.5-5.9); Red Cell Distribution Width 13.2 % (11.6-14.8); White Blood Cell Count 9.4 X10^3/uL (4.5-11.0)
[2018-12-28 05:33] LABS: BUN Creatinine Ratio 18.3 (6-22); Blood Urea Nitrogen 11 mg/dL (9-20); Calcium 9.5 mg/dL (8.4-10.2); Carbon Dioxide 25 mmol/L (22-32); Chloride 99 mmol/L (98-107); Cholesterol 156 mg/dL (140-199); Estimated Glomerular Filt Rate > 60.0 mL/min (>60); Glucose 119 mg/dL (80-110); HDL Cholesterol 47 mg/dL (40-60); HEMOLYSIS < 15 (0-50); LDL Cholesterol Calculated 86 mg/dL (<100); Magnesium 1.9 mg/dL (1.6-2.3); Potassium 3.9 mmol/L (3.4-5.1); Sodium 136 mmol/L (137-145); Triglycerides 114 mg/dL (35-150)
[2018-12-28 05:37] LABS: Hemoglobin A1C% w Est Avg Glu 4.9 % (4.0-6.0)
[2018-12-28 06:10] LABS: TSH w/ Reflex to FT4 1.68 uIU/mL (0.47-4.68)
--- NOTE | 2018-12-28 09:19 | CM.DANOTE ---
Addendum entered by Lotus Garcia LPN 12/28/18 11:42: INPT admission status: confirmed by UR DWAYNE Santamaria. Original Note: Discharge Planning/Care Management DCP: assessment: case received, EMR reviewed and met with pt. Introduced self and role. Pt is a 78 year old male who admitted to care of hospitalist team. PCP: Dr. Joaquín Corral [facility] Admission status: in review: per UR DWAYNE Santamaria Pt is here for s/s of TIA/CVA after a fall. PT/OT/INDUSTRIAL ORDER CLERK have all seen him and are recommending home with spouse assist. Did ask Taina/PT if OUTPT PT would be recommended but she said at this point pt was too high level for this. Pt is found lying in bed, full breakfast in front of him. Says he usually eats a hearty breakfast in the morning but I am just not hungry today. I do not feel right yet. I just told the doctor this. Assured him DCP team would be following CM Discharge Assessment Start: 12/28/18 09:18 Freq: Status: Active Protocol: Document 12/28/18 09:18 ITV (Rec: 12/28/18 09:19 ITV [id number]) Discharge Planning Assessment Advance Directives? 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 Yes Review Status In Process
--- NOTE | 2018-12-28 09:50 | SLP.IPNOTE ---
Attempted to see patient for follow-up from evaluation yesterday. Patient stated he did not sleep last night and would like to rest before his MRI around 10:30. Will attempt to see patient later today.
[2018-12-28] MEDS: AMLODIPINE 5 MG TABLET 10 MG PO (09:52)
[2018-12-28] MEDS: LOSARTAN 50 MG TABLET PO (09:53)
[2018-12-28] MEDS: METOPROLOL IR 25 MG TABLET 50 MG PO ×2 (09:53→21:30)
[2018-12-28] MEDS: chlordiazePOXIDE 25 MG CAPSULE PO ×2 (09:56→21:30)
[2018-12-28] MEDS: HEPARIN 5,000 UNIT/ML VIAL 5000 UNIT SUBCUT ×2 (09:58→21:30)
[2018-12-28] MEDS: CHOLECALCIFEROL (VITAMIN D3) 1,000 UNIT TABLET 4000 UNIT PO (10:38)
[2018-12-28] MEDS: MONTELUKAST 10 MG TABLET PO (10:38)
--- NOTE | 2018-12-28 10:38 | PM.PN.1 ---
Subjective Subjective Date Patient Seen: 12/28/18 Time Patient Seen: 10:38 Interval history: Mr. Park is a 78-year-old male with past medical history of hypertension, colon cancer s/p resection and chemo/radiation (dx 2004) with stoma, and AFib (dx approx. 1 year ago, follows with Dr. Corral) who presented to the ED the request of family for slurred speech, facial droop and facial numbness. His symptoms lasted for longer than 24 hours, as he had a mild facial droop as of 7:00 a.m. this morning per nursing staff. As of my exam around 9:00 a.m., this facial droop has resolved. His stroke scale is now 0. His echocardiogram is currently pending final read, and he is currently going for an MRI later this morning. This morning he said he felt slightly anxious and slightly off, given his daily wine intake and since this was approximately 48 hours since his last drink and that he had mild tremulousness and very slight tongue fasciculations I started treatment for mild alcohol withdrawal. He improved with Librium this morning and feels well now. Exam Vital Signs (past 8 hours): - 12/28/18 04:09 12/28/18 08:00 12/28/18 09:53 Temperature 99.1 F 97.5 F L Pulse Rate 99 H 116 H 64 Respiratory Rate 18 16 Blood Pressure 130/91 H 149/92 H 123/81 Pulse Oximetry 95 95 Oxygen Delivery Method Room Air Oxygen Flow Rate 0 Narrative Exam Narrative: GENERAL APPEARANCE: Elderly male. Well developed, well nourished, in no acute distress. SKIN: Inspection of the skin reveals no rashes, ulcerations or petechiae. Minor skin bruising LUE on arms. HEENT: The sclerae were anicteric and conjunctivae were pink and moist. Extraocular movements were intact and pupils were equal, round with normal accommodation. External inspection of the ears and nose showed no scars, lesions, or masses. Lips, teeth, and gums showed normal mucosa. The oral mucosa, hard and soft palate, tongue and posterior pharynx were unremarkable. NECK: Supple and symmetric. There was no thyroid enlargement, and no tenderness, or masses were felt. CHEST: Normal AP diameter and normal contour without any kyphoscoliosis. LUNGS: Auscultation of the lungs revealed no wheezes, rhonchi, or rales. CARDIOVASCULAR: normal rate, irregularly irregular rhythm. Peripheral pulses were 2+ and symmetric. ABDOMEN: Soft and nontender with normal bowel sounds. No ascites was noted. MUSCULOSKELETAL: There was no tenderness or effusions noted. Muscle strength and tone were normal. EXTREMITIES: No cyanosis, clubbing or edema. NEUROLOGIC: Alert and oriented x 3. Normal affect. Strength is +5/5 in the Upper Extremities and Lower Extremities Bilaterally. Sensation to touch was normal. No facial droop. CN2-12 grossly intact bilaterally. + mild tremulousness and tongue fasciculations. Objective Labs Result Diagrams: 12/28/18 05:03 12/28/18 05:03 Labs: Laboratory Results - last 24 hr 12/28/18 12/28/18 12/28/18 05:03 05:03 05:03 WBC 9.4 RBC 4.95 Hgb 16.0 Hct 45.4 MCV 91.7 MCH 32.4 MCHC 35.3 RDW 13.2 Plt Count 195 Neut % (Auto) 81.3 H Lymph % (Auto) 11.4 L Stanley % (Auto) 6.2 Eos % (Auto) 0.3 L Baso % (Auto) 0.8 Neut # (Auto) 7600 H Lymph # (Auto) 1100 Stanley # (Auto) 600 Eos # (Auto) 0 Baso # (Auto) 100 Sodium 136 L Potassium 3.9 Chloride 99 Carbon Dioxide 25 BUN 11 Creatinine 0.60 L Estimated GFR > 60.0 BUN/Creatinine Ratio 18.3 Glucose 119 H Hemoglobin A1c 4.9 Calcium 9.5 Magnesium 1.9 Triglycerides 114 Cholesterol 156 LDL Cholesterol, Calc 86 HDL Cholesterol 47 TSH 12/28/18 05:03 WBC RBC Hgb Hct MCV MCH MCHC RDW Plt Count Neut % (Auto) Lymph % (Auto) Stanley % (Auto) Eos % (Auto) Baso % (Auto) Neut # (Auto) Lymph # (Auto) Stanley # (Auto) Eos # (Auto) Baso # (Auto) Sodium Potassium Chloride Carbon Dioxide BUN Creatinine Estimated GFR BUN/Creatinine Ratio Glucose Hemoglobin A1c Calcium Magnesium Triglycerides Cholesterol LDL Cholesterol, Calc HDL Cholesterol TSH 1.68 Assessment & Plan Assessment & Plan narrative: Mr. Park is a 78-year-old male with past medical history of hypertension, colon cancer s/p resection and chemo/radiation (dx 2004) with stoma, and AFib (dx approx. 1 year ago, follows with Dr. Corral) who presented to the ED the request of family for slurred speech, facial droop and facial numbness. His symptoms lasted for greater than 24 hours consistent a stroke, but now they have resolved. His course was complicated today by mild alcohol withdrawal, but he is doing well on Librium. 1. Stroke, acute, present on admission, improving -patient presented with a stroke scale of 5, slurred speech facial droop and facial numbness. His symptoms have since resolved but lasted for >24 hours. His stroke scale was 1 as of 7 am this morning and is now 0. This is most likely embolic in nature from Afib and patient had bleeding complications with apixaban. - MRI stroke to evaluate for etiology, most likely embolic but could be ischemic. - PT/OT/Speech, reportedly failed swallow eval in ED - TSH, a1c, lipids were unremarkable. LDL of 86 and will need to initate statin therapy. Will start lipitor 40 mg tonight. - maximize medical therapy for afib - patient had bleeding complications on eliquis previously from his stoma. Will have to have risk/benefit discussions regarding ongoing management. Consider plavix therapy alone as well. - TTE to evaluate for atrial clot. 2. EtOH withdrawal, acute - developed today. Patient drinks reportedly 1 glass of wine with dinner, sometimes more. This morning he developed anxiety, tongue fasciculations, and tremulousness. He feels improved after dose of librium and has no shaking or tremulousness. - short librium taper, 25 mg BID for one day - ativan 1 mg prn. 3. paroxysmal atrial fibrillation, chronic, present on admission - Patient currently in atrial fibrillation, occasional rates to the 130s. - TSH unremarkable. - obtain TTE - increase metoprolol dosing to 50 mg BID (home dosing 25 mg BID) 4. HTN, chronic, present on admission - - continue home medications, allow permissive hypertension however blood pressure is currently controlled. - increased metoprolol as noted above. Code; Full DVT: HSQ Dispo: anticipate discharge tomorrow given need for treatment of mild alcohol withdrawal. He has done well with PT and OT, passed speech therapy eval as well. Quality VTE Deep Vein Thrombosis/Pulmonary Embolism Present on Admission: No
--- NOTE | 2018-12-28 11:42 | PT.IPTN ---
Physical Therapy Treatment Note M2 PT-IP Current Condition Start: 12/27/18 17:48 Freq: NEEDED Status: Active Protocol: Document 12/27/18 17:00 AB (Rec: 12/27/18 18:05 AB [id number]) Physical Therapy Current Condition Current Condition Evaluation Date 12/27/18 Treatment Diagnosis CVA; difficulty in walking Onset Date 12/27/18 M3 PT-IP Subjective Start: 12/27/18 17:48 Freq: NEEDED Status: Active Protocol: Document 12/28/18 11:42 [facility] (Rec: 12/28/18 11:42 GGD [id number]) Subjective Physical Therapy Visit Type Type Patient Unavailable Notes Pt having MRI, will see in PM. M4 PT-IP Mobility and Gait Start: 12/27/18 17:48 Freq:
--- NOTE | 2018-12-28 12:20 | DI.MRI.S_ITS ---
PROCEDURE: MR STROKE Pre- and post-contrast brain MRI, non-contrast brain MR angiogram, pre- and postcontrast neck MR angiogram INDICATIONS: slurred speech, L facial droop improving. TECHNIQUE: Brain: Noncontrast axial T1 spin echo, axial T2 fast spin echo, sagittal and axial FLAIR, coronal T2 fast spin echo, axial gradient echo, axial diffusion and ADC through the brain. After the administration of contrast, axial 3D VIBE of the cranial vasculature and brain. Brain MRA: Non-contrast 3-D time of flight MR angiogram, with multiple vvxihtg-stvniquxu-qotzevjtvf (MIP) reformats performed. Neck MRA: Axial and sagittal TruFISP through the neck. Coronal dynamic MR angiogram during administration of contrast in the arterial and venous phases, with 3-dimenstional ytwhzrj-qmkbtxscz-abylyzgmhr (MIP) reformats constructed from subtraction images. COMPARISON: [facility], CT, CT HEAD/BRAIN WO CON, 12/27/2018, 8:49. FINDINGS: Image quality: Excellent. BRAIN: CSF spaces: Ventricles are normal in size and shape. Basal cisterns are patent. No extra-axial fluid collections. Brain: No intracranial bleeds or mass effects. Dejesus-white matter interface is normal. Restricted diffusion noted in the right insula in the right temporal lobe compatible with areas of acute infarction. Brainstem appears normal. Normal intravascular flow voids are present. 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 No abnormal intracranial enhancement. Skull and face: Calvarial marrow signal is normal. Orbits appear normal. Sinuses: Sinuses and mastoids are clear. BRAIN MR ANGIOGRAM: Anterior circulation: Intracranial internal carotid arteries are normal in size and enhancement. The flow within the paired anterior cerebral arteries is normal and symmetric. The flow within the middle cerebral arteries is normal and symmetric. The anterior communicating artery is seen. No stenoses, occlusions, or aneurysms. Posterior circulation: The visualized portions of the vertebral arteries demonstrate normal caliber, and join to form a normal appearing basilar artery. The flow within the posterior cerebral arteries is normal and symmetric. No stenoses, occlusions, or aneurysms. NECK MR ANGIOGRAM: Carotids: Great vessels demonstrate a conventional anatomy as they arise from the aortic arch. The origins of the common carotid arteries appear patent. The calibers and courses of both common carotid arteries are normal. The bifurcation regions appear normal bilaterally. The internal carotid arteries demonstrate normal course and caliber. Posterior circulation: The origins of the vertebral arteries appear patent. More superior portions of both vertebral arteries demonstrate normal course and caliber, and join to form a normal appearing basilar artery. Miscellaneous: Subclavian arteries appear patent. Pre-contrast images through the neck show no soft tissue abnormalities. IMPRESSION: BRAIN MRI: 1. Small acute infarcts involving the right insula and right temporal lobe. 2. Mild, diffuse cerebral volume loss. 3. Mild periventricular and subcortical white matter chronic microvascular ischemic change. 4. No intracranial hemorrhage. BRAIN MR ANGIOGRAM: 1. Negative examination. 2. No large vessel occlusion, hemodynamically significant stenosis, vascular dissection or cerebral aneurysm. NECK MR ANGIOGRAM: 1. Negative examination. 2. No large vessel occlusion, hemodynamically significant stenosis or vascular dissection. Dictated by: Lyla Cox MD, PhD on 12/28/2018 at 11:25 Approved by: Lyla Cox MD, PhD on 12/28/2018 at 11:34
--- NOTE | 2018-12-28 13:00 | OT.IP.TRT ---
Current Diagnoses Cerebral infarction, unspecified (12/27/18) Occupational Therapy Treatment Note M2 OT-IP Current Condition Start: 12/27/18 16:40 Freq: Status: Active Protocol: Document 12/27/18 16:40 [facility] (Rec: 12/27/18 17:05 [facility] [id number]) Occupational Therapy Current Condition Current Condition Evaluation Date 12/27/18 Treatment Diagnosis CVA Diagnosis Onset Date 12/27/18 Weight Bearing Status Weight Bearing Status Weight Bear as Tolerated M3 OT- IP Subjective and Pain Start: 12/27/18 16:40 Freq: Status: Active Protocol: Document 12/28/18 12:51 [facility] (Rec: 12/28/18 12:57 [facility] [id number]) OT- Subjective Occupational Therapy Visit Type Type Treatment Note Visit Start Time 12:43 Visit Stop Time 12:51 Total Visit Minutes 8 Occupational Therapy Visit Comments Patient Comments Pt states did not sleep well and after having his medication of Librium is feeling better now. Pt awaiting result of MRI. Patient/Caregiver Goals To go home. OT Pain Assessment Pain When Pain Assessed At Rest Pain Present Pain Present Denied Pain M6 OT- IP Functional Cognition Start: 12/27/18 16:40 Freq: Status: Active Protocol: Document 12/28/18 12:51 [facility] (Rec: 12/28/18 12:57 [facility] [id number]) Cognitive Factors Limiting Selfcare Function Cognitive Ability Level of Alertness Alert Patient Orientation Name,Place,Situation Attention Span Ability Capable of Focused Attention, Capable of Sustained Attention Ability to Follow Commands Able to Follow Multi-Step Commands Memory Description No Deficits Noted Cognitive Comments Cognitive Assessment Comments Pt re-trial of [place] B and improved to 80 seconds which implies normal but not perfect score. Pt's aware and states not going to let him drive until after he gets a good night's rest. Pt' s educated to provide supervision and assist as needed. Protocol: Document 12/28/18 12:57 [facility] (Rec: 12/28/18 13:00 [facility] [id number]) OT Summary Assessment and Plan Potential Rehabilitation Potential Excellent Analytic Complexity at Evaluation Low Summary OT Impairments Functional Mobility,Dressing, Toileting,Bathing Progress Towards Goals Progressing Toward Goals Assessment Summary No facial droop noted today and pt feeling back to normal. Pt's aware that she will provide assist as needed and supervision for IADL and driving needs initially. Frequency of Treatment Frequency Of Treatment Once a Day Discharge Recommendations OT Discharge Recommendations Home with Assistance
--- NOTE | 2018-12-28 13:22 | ST.IPDYTX ---
Visit Care Team Role Provider Type Jerry Corral MD Primary Care Provider Physician Specialty: Internal Medicine Address: [address] [place] [address], [id number] Email: [email or web address] Misael Mon DO Emergency Provider Physician Specialty: Emergency Medicine Address: [address] [place] [address], [id number] Email: [email or web address] Aidan Jeffery DO Admit Provider Physician Attending Provider Specialty: Internal Medicine Address: [address] [place] [address], [id number] Email: [email or web address] EST[employer]ATOR Dysphagia Treatment [employer]ATOR Dysphagia Treatment Start: 12/28/18 13:05 Freq: Status: Active Protocol: Document 12/28/18 13:05 [facility] (Rec: 12/28/18 13:21 [facility] [id number]) Dysphagia Treatment Session Time Visit Start Time 12:45 Visit Stop Time 13:05 Total Visit Minutes 20 Setting Assessment Location Acute Care Visit Type Note Type Treatment Note Patient Information Identification Type Name,ID Wristband Subjective Observations pt was completing an OT therapy session with sitting next to bed. Pt's lunch tray was in his room. Treatment Liquids Trialed Thin Solids Trialed Regular Administration Type Self-Feeding Treatment Activities Reviewed swallowing evaluation from yesterday. Reminded the pt that he continues to check left side cheeks for pocketing. Pt and caregiver instruction re risks for pocketed foods to be aspirated if not cleared following each meal. Pt noted that today he has not noticed any difficulty with chewing or drinking liquids. No oral residue observed on inspection. Assessment Patient Response to Treatment Good Assessment of Improvement Pt has improved from yesterday . Minimal left facial droop observed. Speech 100% intelligible with no obvious dysarthria. Able to tolerate regular texture with thin liquids. Pocketing not observed after meal. pPt and both educated re: aspiration risk following CVA/ TIA especially if residual remains in mouth. Diet Recommendations Recommendations Continue Current Diet Medication Recommendations As Tolerated Aspiration Precautions Recommended Precautions Upright at 90 Degrees, Alternate Liquids/Solids,Small Bites/Sips,Lingual Sweep Treatment Plan Placement Recommendation after Discharge Home Therapy Recommendations Discharge from at this time . Pt back to baseline.
--- NOTE | 2018-12-28 17:56 | PT.IPTN ---
Current Diagnoses Cerebral infarction, unspecified (12/27/18) Physical Therapy Treatment Note M2 PT-IP Current Condition Start: 12/27/18 17:48 Freq: NEEDED Status: Active Protocol: Document 12/27/18 17:00 [facility] (Rec: 12/27/18 18:05 AB [id number]) Physical Therapy Current Condition Current Condition Evaluation Date 12/27/18 Treatment Diagnosis CVA; difficulty in walking Onset Date 12/27/18 M3 PT-IP Subjective Start: 12/27/18 17:48 Freq: NEEDED Status: Active Protocol: Document 12/28/18 17:54 [facility] (Rec: 12/28/18 17:56 AB [id number]) Subjective Physical Therapy Visit Type Type Patient Refusal Notes pt refused to do PT. stated that he is tired and just want to just rest.
[2018-12-28] MEDS: ATORVASTATIN 20 MG TABLET 40 MG PO (21:30)
--- NOTE | 2018-12-28 22:39 | PC.NURSE ---
Assumed care of pt at 1500. Pt resting in bed during bedside hand-off. A/O. NIH. Denies numbness, Denies visual deficits. Pupils equal/reactive. Ambulating in room independently. Calling appropriately for needs. IVF of NS @ 150 ml/hr noted to be still on may. Called hospitalist to clarify order. Order d/c'd by night hospitalist. Student nurse participating in pt care including assessments and medication administrations; all care performed by student has been under supervision of this RN.
[2018-12-29] VITALS (10 sets, daily range): BP systolic 91–147; BP diastolic 51–104; PULSE 72–122; RESP 15–20; TEMP 36.3–37.6; O2SAT 94–98
[2018-12-29] MEDS: ACETAMINOPHEN 325 MG TABLET 650 MG PO (01:34)
[2018-12-29 05:24] LABS: Add Manual Diff / Slide Review NO; Basophils Absolute Auto 100 /uL (0-100); Basophils Percent Auto 0.5 % (0-2); Eosinophils Absolute Auto 0 /uL (0-450); Hematocrit 44.8 % (41-53); Hemoglobin 15.6 g/dL (13.5-17.5); Lymphocytes Absolute Auto 1100 /uL (1100-4500); Lymphocytes Percent Auto 6.9 % (25-40); Mean Corpuscular HGB Conc 34.8 % (30-36); Mean Corpuscular Hemoglobin 31.8 PG (26-34); Mean Corpuscular Volume 91.6 fL (80-100); Monocytes Absolute Auto 600 /uL (0-900); Monocytes Percent Auto 3.7 % (3-14); Neutrophils Absolute Auto 14400 /uL (1500-7000); Neutrophils Percent Auto 88.9 % (50-75); Platelet Count 199 X10^3/uL (150-400); Red Blood Cell Count 4.89 X10^6/uL (4.5-5.9); Red Cell Distribution Width 13.1 % (11.6-14.8)
[2018-12-29 05:28] LABS: Blood Urea Nitrogen 17 mg/dL (9-20); Calcium 9.7 mg/dL (8.4-10.2); Carbon Dioxide 25 mmol/L (22-32); Chloride 95 mmol/L (98-107); Estimated Glomerular Filt Rate > 60.0 mL/min (>60); Glucose 136 mg/dL (80-110); HEMOLYSIS < 15 (0-50); Magnesium 2.1 mg/dL (1.6-2.3); Potassium 4.1 mmol/L (3.4-5.1); Sodium 132 mmol/L (137-145)
[2018-12-29 05:30] LABS: White Blood Cell Count 16.2 X10^3/uL (4.5-11.0)
[2018-12-29] MEDS: ONDANSETRON 4 MG/2 ML INJ IV (09:05)
--- NOTE | 2018-12-29 09:50 | PM.PN.1 ---
Subjective Subjective Date Patient Seen: 12/29/18 Time Patient Seen: 08:30 Interval history: Mr. Park is a 78-year-old male with past medical history of hypertension, colon cancer s/p resection and chemo/radiation (dx 2004) with stoma, and AFib (dx approx. 1 year ago, follows with Dr. Corral) who presented to the ED the request of family for slurred speech, facial droop and facial numbness. His symptoms lasted for longer than 24 hours and his MRI did show an acute stroke in the right insula and right temporal lobe. His echocardiogram showed an EF of 40 to 50%, reduced from prior, but he was in AFib with RVR during study. He received treatment for alcohol withdrawal yesterday with Librium, however this morning he was quite nauseated and vomited yellowish green but clear material this morning, and his abdomen was quite distended. I have ordered him for a CT scan, he is currently drinking the oral contrast but feeling slightly better. He also had a rise in his white blood cell count to 16, which may be reactive to the possible small-bowel obstruction which I suspect, however this CT scan will clarify if there is an infectious process as well. He denies any fevers, chills. He does not have any abdominal pain at this time. He denies any chest discomfort or shortness of breath. Exam Vital Signs (past 8 hours): - 12/29/18 06:00 12/29/18 08:00 Temperature 98.1 F 98.7 F Pulse Rate 100 H 100 H Respiratory Rate 19 18 Blood Pressure 117/69 124/76 Pulse Oximetry 95 95 Oxygen Delivery Method Room Air Oxygen Flow Rate 0 Narrative Exam Narrative: GENERAL APPEARANCE: Elderly male. Well developed, well nourished, appears mildly ill and slightly pale. SKIN: Inspection of the skin reveals no rashes, ulcerations or petechiae. Minor skin bruising LUE on arms. HEENT: The sclerae were anicteric and conjunctivae were pink and moist. Extraocular movements were intact and pupils were equal, round with normal accommodation. External inspection of the ears and nose showed no scars, lesions, or masses. Lips, teeth, and gums showed normal mucosa. The oral mucosa, hard and soft palate, tongue and posterior pharynx were unremarkable. NECK: Supple and symmetric. There was no thyroid enlargement, and no tenderness, or masses were felt. CHEST: Normal AP diameter and normal contour without any kyphoscoliosis. LUNGS: Auscultation of the lungs revealed no wheezes, rhonchi, or rales. CARDIOVASCULAR: normal rate, irregularly irregular rhythm. Peripheral pulses were 2+ and symmetric. ABDOMEN: Distended, minimal diffuse tenderenss. Vomiting upon palpation. MUSCULOSKELETAL: There was no tenderness or effusions noted. Muscle strength and tone were normal. EXTREMITIES: No cyanosis, clubbing or edema. NEUROLOGIC: Alert and oriented x 3. Normal affect. Strength is +5/5 in the Upper Extremities and Lower Extremities Bilaterally. Sensation to touch was normal. No facial droop. CN2-12 grossly intact bilaterally. Objective Labs Result Diagrams: 12/29/18 05:03 12/29/18 05:03 Labs: Laboratory Results - last 24 hr 12/29/18 12/29/18 05:03 05:03 WBC 16.2 H D RBC 4.89 Hgb 15.6 Hct 44.8 MCV 91.6 MCH 31.8 MCHC 34.8 RDW 13.1 Plt Count 199 Neut % (Auto) 88.9 H Lymph % (Auto) 6.9 L [place] % (Auto) 3.7 Eos % (Auto) 0.0 L Baso % (Auto) 0.5 Neut # (Auto) 04845 H Lymph # (Auto) 1100 [place] # (Auto) 600 Eos # (Auto) 0 Baso # (Auto) 100 Sodium 132 L Potassium 4.1 Chloride 95 L Carbon Dioxide 25 BUN 17 Creatinine 0.50 L Estimated GFR > 60.0 BUN/Creatinine Ratio 34.0 H Glucose 136 H Calcium 9.7 Magnesium 2.1 Assessment & Plan Assessment & Plan narrative: Mr. Park is a 78-year-old male with past medical history of hypertension, colon cancer s/p resection and chemo/radiation (dx 2004) with stoma, and AFib (dx approx. 1 year ago, follows with Dr. Corral) who presented to the ED the request of family for slurred speech, facial droop and facial numbness. His symptoms lasted for greater than 24 hours consistent a stroke, but now they have resolved. His course was complicated by possible alcohol withdrawal which resolved today, however he had nausea, vomiting and abdominal distention concerning for a small-bowel obstruction this morning. He is currently pending a CT abdomen for further evaluation. 1. Stroke, acute, present on admission, improving -patient presented with a stroke scale of 5, slurred speech facial droop and facial numbness. His symptoms have since resolved but lasted for >24 hours. His stroke scale was 1 as of 7 am this morning and is now 0. This is most likely embolic in nature from Afib and patient had bleeding complications with apixaban. MRI did show right-sided lingula and temporal lobe infarcts that were small, there were no significant carotid stenoses. I had an extensive discussion about further management with anticoagulation with the patient, and as of now they wish to discuss this with his primary care provider Dr. Corral and to continue aspirin therapy alone at this time. I talked about the possibilities of aspirin and Plavix, aspirin alone, resuming Eliquis or Xarelto, and the possibility of a Watchman procedure. This procedure is not done at [facility], and the patient and family did not seem interested in pursuing this mode of stroke prevention. - MRI as noted above. - PT/OT/Speech to continue - TSH, a1c, lipids were unremarkable. LDL of 86 and will need to initate statin therapy. Will start lipitor 40 mg tonight. - maximize medical therapy for afib. - patient had bleeding complications on eliquis previously from his stoma. Will have to have risk/benefit discussions regarding ongoing management. Consider plavix therapy alone as well. - TTE with reduced EF of 40-50%, however patient was in afib with RVR. 2. Nausea / vomiting - with abdominal distension and concern for small bowel obstruction. He did have good output from his ostomy so this is likely to be partial if present. He further had a rise in his white blood cell count to 16 today, however no recorded fevers and no localizing signs. This could be explained by a small bowel obstruction, and he has no other evidence of infectious etiologies but intra-abdominal sources will be evaluated with this CT scan. - f/u CT abdomen and pelvis - possible surgery consult pending CT abdomen - NPO - hold HSQ this AM pending CT results. 3. EtOH withdrawal, acute, noew resolved - . Patient drinks reportedly 1 glass of wine with dinner, sometimes more. on HD#1 he developed anxiety, tongue fasciculations, and tremulousness which he was treated with 2 doses of librium and is now improved. - short librium taper, 25 mg BID for one day - ativan 1 mg prn. 4. paroxysmal atrial fibrillation, chronic, present on admission - Patient currently in atrial fibrillation, occasional rates to the 130s. - TSH unremarkable. - obtain TTE - increased metoprolol dosing to 50 mg BID on HD#1 (home dosing 25 mg BID) 5. HTN, chronic, present on admission - - continue home medications, allow permissive hypertension however blood pressure is currently controlled. - increased metoprolol as noted above, will hold further titration given possible SBO today as noted above. Code; Full DVT: HSQ held this AM for possible SBO Dispo: Remains inpatient today, pending medical stability. Quality VTE Deep Vein Thrombosis/Pulmonary Embolism Present on Admission: No
--- NOTE | 2018-12-29 09:55 | DI.CT.S_ITS ---
PROCEDURE: CT ABDOMEN PELVIS W CON INDICATIONS: leukocytosis, abdominal distension, vomiting with stoma TECHNIQUE: After the administration of intravenous contrast, 5 mm thick sections acquired from the diaphragm to the symphysis. 5 mm coronal and sagittal reformats were acquired. For radiation dose reduction, the following was used: automated exposure control, adjustment of mA and/or kV according to patient size. COMPARISON: None. FINDINGS: Image quality: Excellent. ABDOMEN: Lung bases: Patchy groundglass opacity at the lower lobes bilaterally. No pleural effusion. Heart size is normal. Solid organs: Liver is normal in size and enhancement. Gallbladder is unremarkable. Biliary system is non dilated. Pancreas enhances normally. Pancreas is atrophic. Cystic lesion in the tail of the pancreas measuring 2.5 x 1.8 cm, (2/36). No main duct pancreatic ductal dilatation. Spleen is normal in size and enhancement. No adrenal nodules. Kidneys demonstrate normal size and enhancement, without hydronephrosis. 2 mm nonobstructing renal calculus in the superior right kidney. Peritoneum and bowel: Surgical clips in the presacral space. Left lower quadrant end colostomy. A few scattered colonic diverticuli. The small bowel obstruction with the transition point in the left lower quadrant near the colostomy, (4/16). No pneumatosis or pneumoperitoneum. The stomach is distended. Nodes and vessels: No retroperitoneal or mesenteric adenopathy by size criteria. Aorta and inferior vena cava are normal in size. Miscellaneous: No ventral hernias. PELVIS: Genitourinary: Bladder is mostly decompressed. Small volume of low-density free fluid in the pelvis, (2/82). Miscellaneous: No inguinal hernias or adenopathy. Bones: No suspicious bony lesions. No vertebral body compression fractures. IMPRESSION: 1. Mechanical small bowel obstruction with the transition point in the left lower quadrant near the colostomy. Small volume of free fluid tracking in the pelvis. 2. Patchy groundglass opacity at the lung bases. Differential includes infectious/inflammatory etiology, aspiration, or atelectasis. 3. Small cystic lesion in the tail the pancreas measuring 2.5 cm. Differential includes IPMN, MCM, epithelial cysts, or less likely pseudocyst. EUS/FNA should be considered. Recommend followup CT pancreas or MRI in 6 months. Comment: Acute finding of small bowel obstruction was conveyed to the patient's nurse Jenni at 10:55 AM. Dictated by: Yusef James M.D. on 12/29/2018 at 10:37 Approved by: Yusef James M.D. on 12/29/2018 at 11:05
--- NOTE | 2018-12-29 12:20 | PM.CN ---
History of Present Illness Consult details Date Patient Seen: 12/29/18 Time Patient Seen: 12:20 Chief complaint: left side chest injury/slurred speach Narrative: 78-year-old white male came to the emergency room yesterday with slurred speech and facial droop numbness felt to be having a stroke he does have a history of atrial fibrillation and is on aspirin but no other anticoagulants. He had no other somatic neurologic deficits. Actually his facial droop cleared rapidly and his CT of the head was unremarkable. He had an MRI of the brain which shows insular and right temporal lobe acute stroke. Currently he has no neurologic deficits. I am asked to see the patient because he had projectile vomiting this morning. Significant abdominal surgical history is that he had an abdominal perineal resection in 2004 for rectal carcinoma. He had subsequent chemo radiation. Patient had a CT scan of the abdomen and pelvis but an hour ago. I have reviewed this with the radiologist here today. 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 There is a transition point in the pelvis. He has considerable dilatation of the small bowel proximally and of the stomach as well. At this moment the patient denies abdominal pain. FORMERLY [facility], [facility] Medical History (Updated 12/27/18 @ 12:32 by Aidan Jeffery DO) Colon cancer (Acute) HTN (hypertension) (Acute) Paroxysmal atrial fibrillation (Acute) Surgical History (Updated 12/27/18 @ 12:32 by Aidan Jeffery DO) H/O total colectomy (Acute) Social History household members: spouse Smoking Status: Former smoker Social History household members: spouse Smoking Status: Former smoker Meds Home Medications and Allergies Home Medications Medication Instructions Recorded Confirmed Type amlodipine 10 mg PO DAILY 12/27/18 12/27/18 History ascorbic acid (vitamin C) 1,000 mg PO DAILY 12/27/18 12/27/18 History aspirin 325 mg PO DAILY 12/27/18 12/27/18 History cholecalciferol (vitamin D3) 4,000 unit PO DAILY 12/27/18 12/27/18 History [Vitamin D3] losartan 50 mg PO DAILY 12/27/18 12/27/18 History metoprolol tartrate 25 mg PO BID 12/27/18 12/27/18 History montelukast 10 mg PO DAILY 12/27/18 12/27/18 History triamterene-hydrochlorothiazid 0.5 tab PO DAILY 12/27/18 12/27/18 History Allergies Allergy/AdvReac Type Severity Reaction Status Date / Time No Known Drug Allergies Allergy Verified 12/27/18 11:58 Review of Systems Review of Systems ROS Unobtainable: All systems reviewed & are unremarkable except as noted in HPI and below Exam Vital Signs (past 8 hours): - 12/29/18 06:00 12/29/18 08:00 Temperature 98.1 F 98.7 F Pulse Rate 100 H 100 H Respiratory Rate 19 18 Blood Pressure 117/69 124/76 Pulse Oximetry 95 95 Oxygen Delivery Method Room Air Oxygen Flow Rate 0 Narrative Exam Narrative: Patient is alert and oriented neurologically intact. Patient denies any significant abdominal pain at this time. Lungs are clear with no rales or wheezes Heart irregular rhythm with known atrial fibrillation. Abdomen firm and distended. Patient has a left lower quadrant colostomy. Bag is empty. No evidence of hernias around the stoma or in the groins. Patient has surgical absence of the anus and rectum. Objective Labs Result Diagrams: 12/29/18 05:03 12/29/18 05:03 Labs: Laboratory Results - last 24 hr 12/29/18 12/29/18 05:03 05:03 WBC 16.2 H D RBC 4.89 Hgb 15.6 Hct 44.8 MCV 91.6 MCH 31.8 MCHC 34.8 RDW 13.1 Plt Count 199 Neut % (Auto) 88.9 H Lymph % (Auto) 6.9 L [place] % (Auto) 3.7 Eos % (Auto) 0.0 L Baso % (Auto) 0.5 Neut # (Auto) 38562 H Lymph # (Auto) 1100 [place] # (Auto) 600 Eos # (Auto) 0 Baso # (Auto) 100 Sodium 132 L Potassium 4.1 Chloride 95 L Carbon Dioxide 25 BUN 17 Creatinine 0.50 L Estimated GFR > 60.0 BUN/Creatinine Ratio 34.0 H Glucose 136 H Calcium 9.7 Magnesium 2.1 Assessment & Plan Assessment & Plan narrative: Patient and abdominal perineal resection 15 years ago for carcinoma. Seems to be disease free at this time. To acute problems are 1 recent CVA with no residual neurologic deficit. Second is small-bowel obstruction secondary to pelvic adhesions which are apparent on today's CT scan of the abdomen. Plan is nasogastric decompression IV fluids repeat abdominal x-rays tomorrow. I have explained to the patient that he may need a laparotomy for bowel obstruction. [place] [id number] [place]. Patient and his understand the nature of the problem and agree to the plan with no other questions.
[2018-12-29] MEDS: SODIUM CHLORIDE 0.9% 1,000 ML 100 ML IV ×2 (12:51→16:08)
[2018-12-29] MEDS: HEPARIN 5,000 UNIT/ML VIAL 5000 UNIT SUBCUT ×2 (12:51→21:27)
[2018-12-29] MEDS: LORazepam 2 MG/ML INJ 1 MG IV ×2 (12:51→21:41)
[2018-12-29 13:33] LABS: Lactate (Lactic Acid) 2.3 mmol/L (0.7-2.1)
--- NOTE | 2018-12-29 13:53 | DI.RAD.S_ITS ---
PROCEDURE: XR CHEST 1V INDICATIONS: ng tube placement TECHNIQUE: One view of the chest was acquired. COMPARISON: None. FINDINGS: Surgical changes and devices: Esophagogastric tube in position with its tip in the gastric body. The side port appears at the EG junction.. Lungs and pleura: Lungs are clear. No pleural effusions or pneumothorax. Mediastinum: Mediastinal contours appear normal. Heart size is normal. Bones and chest wall: No suspicious bony lesions. Overlying soft tissues appear unremarkable. IMPRESSION: Esophagogastric tube tip at the gastric body. Dictated by: David Bennett M.D. on 12/29/2018 at 14:48 Approved by: David Bennett M.D. on 12/29/2018 at 14:49
[2018-12-29] MEDS: SODIUM CHLORIDE 0.9% 1,000 ML 1000 ML IV (14:25)
--- NOTE | 2018-12-29 14:32 | CM.DPC ---
DCP: continued: Much has transpired for pt between yesterday and today. His MRI did confirm acute CVA. He had an episode of projectile vomiting and, after testing, a small bowl obstruction has been diagnosed. Dr. Jackson is consulting and has discussed possible need for surgery with pt and his . OF NOTE: pt with history of prior abdominal surgery 15 years ago that resulted in a LLQ colostomy which remains in place today. A check in of pt shows him lying in bed, NGT in place and wall canister half full of brownish material. DCP team will be following as POC unfolds. DC dispo: now is undetermined: but pt with Medicare and [employer] and INPT admission status: is well positioned for various d/c dispositions that may be needed.
--- NOTE | 2018-12-29 15:03 | PT-IP ANOTE ---
Pt refused therapy in am, I am waiting for my physician on radiology results. INSTRUMENT SHOP SUPERVISOR returned in afternoon, per RN therapy on hold for therapy for recovery time secondary to up most of the day.
[2018-12-29 15:08] LABS: Reflexed Lactate in 2 Hours Y
--- NOTE | 2018-12-29 15:41 | OT.IP.TRT ---
Current Diagnoses Cerebral infarction, unspecified (12/27/18) Surgery Performed Operation Date: 12/30/18 17:15 <No data on this case meets the specified criteria> Occupational Therapy Treatment Note M2 OT-IP Current Condition Start: 12/27/18 16:40 Freq: Status: Active Protocol: Document 12/27/18 16:40 [facility] (Rec: 12/27/18 17:05 [facility] [id number]) Occupational Therapy Current Condition Current Condition Evaluation Date 12/27/18 Treatment Diagnosis left side chest injury,slurred speech Diagnosis Onset Date 12/27/18 Weight Bearing Status Weight Bearing Status Weight Bear as Tolerated M3 OT- IP Subjective and Pain Start: 12/27/18 16:40 Freq: Status: Active Protocol: Document 12/29/18 15:40 [facility] (Rec: 12/29/18 15:41 [facility] [id number]) OT- Subjective Occupational Therapy Visit Type Type Patient Unavailable Notes Per nursing wanting pt to rest and hold for therapy. Pt has small bowel obstruction, now NPO and on NG tube. To check on pt tomorrow for OT treatment.
--- NOTE | 2018-12-29 15:43 | PC.NURSE ---
Pt had projectile vomiting this AM, green colored fluid. < abd was round, firm, BS +. Brianna Jeffery notified of Pt changes, . CT w/contrast ordered & completed today, The Radiologist called and reported the Pt has a SBO, needs an NGT. Notified Dr Jeffery of report, . 16 fr NGT placed, Pt tracey well, set at lis, immed output of green fluid, Pt had a total of 1200 ml from the NGT this shift. . Pt voided this am at approx 0800, states she emptied the urinal, doesnt know how much. At 1430 bladder scan completed, range from 44-140 ml. Pt b/p is 95/62, Dr Jeffery updated on Pt , ordered a 1000 ml bolus. Informed the MD no Metoprolol give d/t b/p. Tele remains on, a-fib. Ht rate has been 88-130 this shift. aware. Pt calf scds on ble, Colostomy emptied of 550ml at beginning of shift. Pt abd is now soft, denies pain. 1520 reported to oncoming shift. Remains afebrile.
[2018-12-29] MEDS: METOPROLOL TARTRATE 5 MG/5 ML INJ IV (19:00)
--- NOTE | 2018-12-29 19:11 | PC.NURSE ---
Addendum entered by Yun Lao R.N. 12/30/18 01:54: 2130: Per Hospitalist all PO medications should be held as pt is NPO and increase IVF to 150 ml/hr for low urine output and low BP. 0045 Pt noted to have bilateral crackles in the bases upon auscultation. Hospitalist notified. Per Hospitalist reduce rate back to 100 ml/hr. IV metoprolol given per may. BP and pulse taken prior during and post administration. ETIQUETTE TEACHER monitoring Tele notified to monitor tele and advise this RN if any changes in reading are noted. Original Note: Assumed care of pt at 1500. Pt resting in bed during bedside hand-off. NG to R nare. Set to Low intermit suction. IVF bolus completed new IVF rate 100 ml/hr. Noted duplicate orders on NG tube setting and IVF; clarified orders with Dr. Adam. NG tube to be set to Cont low suction and only one order for NS @100 ml/hr should be ordered. BP remains low. Per Dr. Jeffery ok to administer IV metoprolol for BP 101/51 pulse 118 and to call MD if SBP is lower than 100 and clarify if medication should be held or given. BP after administration of 5 mg IV metoprolol 91/57 pulse 108. Student nurse participating in pt assessments and medication administration. All care performed by student has been under the supervision of this telegraphic typewriter operator.
[2018-12-30] VITALS (15 sets, daily range): BP systolic 116–127; BP diastolic 64–84; PULSE 103–123; RESP 18–20; TEMP 36.7–37.1; O2SAT 88–96
[2018-12-30] MEDS: SODIUM CHLORIDE 0.9% 1,000 ML 100 ML IV (01:37)
[2018-12-30] MEDS: METOPROLOL TARTRATE 5 MG/5 ML INJ IV (01:41)
--- NOTE | 2018-12-30 08:09 | DI.RAD.S_ITS ---
PROCEDURE: XR ACUTE ABDOMEN SERIES INDICATIONS: bowel obstruction TECHNIQUE: One view chest and two views of the abdomen were acquired. COMPARISON: None. FINDINGS: Surgical changes and devices: None. Chest: Lungs are clear. Heart size is normal. No pleural effusions. No pneumoperitoneum. Abdomen: Bowel gas pattern is abnormal with multiple small bowel loops of gas distended over the mid and lower abdomen extending into the pelvis. No suspicious calcifications. Visualized solid organ contours appear normal. Bones: No suspicious bony lesions. IMPRESSION: Small bowel gas distention pattern, no free air seen. Colon is not distended. Dictated by: David Bennett M.D. on 12/30/2018 at 8:59 Approved by: David Bennett M.D. on 12/30/2018 at 8:59
[2018-12-30 08:13] LABS: Add Manual Diff / Slide Review NO; Basophils Absolute Auto 0 /uL (0-100); Basophils Percent Auto 0.1 % (0-2); Eosinophils Absolute Auto 0 /uL (0-450); Hematocrit 41.1 % (41-53); Hemoglobin 14.4 g/dL (13.5-17.5); Lymphocytes Absolute Auto 600 /uL (1100-4500); Lymphocytes Percent Auto 6.5 % (25-40); Mean Corpuscular Volume 91.4 fL (80-100); Monocytes Absolute Auto 500 /uL (0-900); Monocytes Percent Auto 5.5 % (3-14); Neutrophils Absolute Auto 8700 /uL (1500-7000); Neutrophils Percent Auto 87.9 % (50-75); Platelet Count 161 X10^3/uL (150-400); Red Blood Cell Count 4.49 X10^6/uL (4.5-5.9); Red Cell Distribution Width 13.4 % (11.6-14.8); White Blood Cell Count 9.9 X10^3/uL (4.5-11.0)
[2018-12-30 08:30] LABS: Lactate (Lactic Acid) 0.9 mmol/L (0.7-2.1)
[2018-12-30 08:32] LABS: Blood Urea Nitrogen 20 mg/dL (9-20); Calcium 8.8 mg/dL (8.4-10.2); Carbon Dioxide 30 mmol/L (22-32); Chloride 98 mmol/L (98-107); Estimated Glomerular Filt Rate > 60.0 mL/min (>60); Glucose 118 mg/dL (80-110); HEMOLYSIS < 15 (0-50); Magnesium 2.1 mg/dL (1.6-2.3); Potassium 3.4 mmol/L (3.4-5.1); Sodium 133 mmol/L (137-145)
[2018-12-30] MEDS: CHOLECALCIFEROL (VITAMIN D3) 1,000 UNIT TABLET 4000 UNIT PO (09:50)
[2018-12-30] MEDS: LOSARTAN 50 MG TABLET PO (09:50)
[2018-12-30] MEDS: ASCORBIC ACID 500 MG TABLET 1000 MG PO (09:50)
[2018-12-30] MEDS: AMLODIPINE 5 MG TABLET 10 MG PO (09:50)
[2018-12-30] MEDS: HEPARIN 5,000 UNIT/ML VIAL 5000 UNIT SUBCUT ×2 (09:52→22:06)
--- NOTE | 2018-12-30 09:52 | P.PN_ITS ---
Subjective Subjective Date Patient Seen: 12/30/18 Time Patient Seen: 09:52 Interval history: Patient admitted with acute stroke and partial small bowel obstruction. Has resumed some GI function with liquid stool and gas in his stoma bag. No further nausea or vomiting. Exam Vital Signs (past 8 hours): - 12/30/18 03:40 12/30/18 08:00 Temperature 98.7 F 98.4 F Pulse Rate 116 H 115 H Respiratory Rate 19 20 Blood Pressure 122/71 118/67 Pulse Oximetry 94 95 Oxygen Delivery Method Nasal Cannula Oxygen Flow Rate 0 Narrative Exam Narrative: Patient is neurologically intact afebrile. Abdomen much less distended and much less tender. There is a small amount of stool and gas in his colostomy bag. Objective Labs Result Diagrams: 12/30/18 07:45 12/30/18 07:45 Labs: Laboratory Results - last 24 hr 12/29/18 12/30/18 12/30/18 13:05 07:45 07:45 WBC 9.9 RBC 4.49 L Hgb 14.4 Hct 41.1 MCV 91.4 MCH 32.0 MCHC 35.0 RDW 13.4 Plt Count 161 Neut % (Auto) 87.9 H Lymph % (Auto) 6.5 L [place] % (Auto) 5.5 Eos % (Auto) 0.0 L Baso % (Auto) 0.1 Neut # (Auto) 8700 H Lymph # (Auto) 600 L [place] # (Auto) 500 Eos # (Auto) 0 Baso # (Auto) 0 Sodium 133 L Potassium 3.4 Chloride 98 Carbon Dioxide 30 BUN 20 Creatinine 0.50 L Estimated GFR > 60.0 BUN/Creatinine Ratio 40.0 H Glucose 118 H Lactate 2.3 H Calcium 8.8 Magnesium 2.1 12/30/18 07:50 WBC RBC Hgb Hct MCV MCH MCHC RDW Plt Count Neut % (Auto) Lymph % (Auto) [place] % (Auto) Eos % (Auto) Baso % (Auto) Neut # (Auto) Lymph # (Auto) [place] # (Auto) Eos # (Auto) Baso # (Auto) Sodium Potassium Chloride Carbon Dioxide BUN Creatinine Estimated GFR BUN/Creatinine Ratio Glucose Lactate 0.9 Calcium Magnesium Assessment & Plan Assessment & Plan narrative: Abdominal films this morning show improvement of partial small bowel obstruction with migration of contrast from the small bowel into the colon. This is contrast that was given for his CT scan yesterday. Still has gaseous distention of the stomach and the NG tube is barely in the proximal stomach so we will advance the NG tube. There is definite improvement of the bowel gas pattern with contrast and gas in the colon today. NG aspirate is fecal like. There is still evidence of partial bowel obstruction. However there is definite improvement over yesterday. We will continue conservative treatment. Repeat his abdominal x-rays tomorrow. Patient has a fresh stroke although a neurologically is now intact. He is a high risk surgical patient. His laboratory data are improved with normalization of a white count and normal lactate this morning. Quality VTE Deep Vein Thrombosis/Pulmonary Embolism Present on Admission: No
[2018-12-30] MEDS: MONTELUKAST 10 MG TABLET PO (09:53)
[2018-12-30] MEDS: METOPROLOL IR 25 MG TABLET PO ×2 (09:54→17:58)
--- NOTE | 2018-12-30 10:30 | OT.IP.TRT ---
Current Diagnoses Cerebral infarction, unspecified (12/27/18) Surgery Performed Operation Date: 12/30/18 17:15 <No data on this case meets the specified criteria> Occupational Therapy Treatment Note M2 OT-IP Current Condition Start: 12/27/18 16:40 Freq: Status: Active Protocol: Document 12/27/18 16:40 [facility] (Rec: 12/27/18 17:05 [facility] [id number]) Occupational Therapy Current Condition Current Condition Evaluation Date 12/27/18 Treatment Diagnosis left side chest injury,slurred speech Diagnosis Onset Date 12/27/18 Weight Bearing Status Weight Bearing Status Weight Bear as Tolerated M3 OT- IP Subjective and Pain Start: 12/27/18 16:40 Freq: Status: Active Protocol: Document 12/30/18 10:28 [facility] (Rec: 12/30/18 10:30 [facility] [id number]) OT- Subjective Occupational Therapy Visit Type Type Patient Refusal Notes Pt too tired not wanting to do OT treatment today, therefore to check on pt tomorrow.
--- NOTE | 2018-12-30 11:38 | PC.NURSE ---
Addendum entered by Radha Khoury R.N. 12/30/18 15:41: NG tube advanced about three inches, per Dr. Jackson request. Urine output low, concentrated. Dr. Mcnamara informed. Pt. to shower with OT. NG clamped, IV SL'd for shower. Tape came loose from NG; resecured. Pt up to chair, NG and IV resumed. Original Note: DAY SHIFT Report received, care assumed. Pt A&Ox3, denies pain. C/o being hungry and thirsty (NPO d/t bowel obstruction), tired and weak. Pt. to Radiology at 0813 for KUB. KUB demonstrates improvement, but ongoing SBO. Per Drs. Adam and Anders, may clamp NG for 1-2 hours to give PO meds. Family at bedside. Pt. encouraged to increase activity; suggested walking, OOB to chair, and shower. Pt. says he will get OOB this afternoon.
--- NOTE | 2018-12-30 11:53 | PC.ADMIT ---
[address] Admission Note: The patient,Vishal Park,78 y/o, was given written information regarding hospital policies, unit procedures and contact persons. Patient's smoking status: Former smoker. Vital Signs - 8 hr 12/30/18 08:00 12/30/18 09:50 Temperature 98.4 F Pulse Rate 115 H Respiratory Rate 20 Blood Pressure 118/67 118/67 Pulse Oximetry 95 Checked on pt and pt is asleep. Spouse in room and stated that pt just got to finally sleep and wants PT not to wake pt up. will f/u.
--- NOTE | 2018-12-30 11:58 | PT-IP ANOTE ---
Checked on pt and pt is asleep. Spouse in room and stated that pt just got to finally sleep and wants PT not to wake pt up. will f/u.
--- NOTE | 2018-12-30 14:15 | P.PN_ITS ---
Subjective Subjective Date Patient Seen: 12/30/18 Interval history: Vishal Park is a 78-year-old male with a past medical history significant for hypertension, colon cancer status post partial colon resection with colostomy, chemo and radiation, and atrial fibrillation who presented to the ED for slurred speech and left-sided facial droop and facial numbness which now have resolved and are secondary to acute CVA. Patient then had abdominal distention and leukocytosis and was found to have SBO on 12/29. Interval history: Patient has continued to be in atrial fibrillation with average heart rate 110's and occasional runs up to 150s. The patient is resting in bed comfortably. He reports he feels fatigued and weak overall and that is his reasoning for not working with physical or occupational therapies. Discussed indication for PT and OT in order to keep him strong and potentially keeping him from needing rehab at the end of his hospitalization. The patient expresses understanding and reports he is willing to work with the therapies today. He endorses mild nausea. He no longer has any abdominal pain. He has had 300-400 cc of bilious output through NG tube overnight. Plan to allow for medications only today. He has no residual slurred speech or left-sided facial droop. He has no other complaints and denies headache, shortness of breath, chest pain, abdominal pain, vomiting, fever, chills, dysuria, diarrhea or constipation. He has been intermittently incontinent and per nursing staff has has had low urine output today. He has had mostly gas in his colostomy with little stool. He is up ambulating minimally with assistance. Exam Vital Signs (past 8 hours): - 12/30/18 09:50 12/30/18 11:00 12/30/18 12:58 Temperature Pulse Rate Respiratory Rate Blood Pressure 118/67 Pulse Oximetry 95 88 L 12/30/18 13:10 12/30/18 16:02 Temperature 98.0 F 98.3 F Pulse Rate 113 H 118 H Respiratory Rate 18 18 Blood Pressure 119/68 118/73 Pulse Oximetry 90 L 93 Oxygen Delivery Method Room Air Oxygen Flow Rate 2 Narrative Exam Narrative: General: Elderly male lying in bed and in no acute distress, appears ill, well-developed, well-nourished, appropriately interactive. HEENT: Normocephalic, atraumatic. External ears without defect. Pupils equal, round, and reactive to light. Anicteric sclerae, moist conjunctivae, and no lid lag. Neck: Supple with full range of motion. No jugular venous distension. No lymphadenopathy or thyromegaly. Cardiovascular: Irregularly irregular, tachycardic, without murmurs, rubs, or gallops appreciated Pulmonary: Clear to auscultation bilaterally without crackles, wheezes, or rho nchi. Normal respiratory effort with no use of accessory muscles. Abdomen: Soft, hypoactive bowel sounds, nontender, mild distension. No hepatosplenomegaly or masses appreciated. Extremities: No clubbing, cyanosis, or edema. Skin: Normal temperature, turgor, and texture; no rash, ulcers, or subcutaneous nodules appreciated. Neurological: Cranial nerves grossly intact. Generalized weakness. Psychiatric: Normal mood and affect. Alert and oriented to person, place, and time. Objective Labs Result Diagrams: 12/30/18 07:45 12/30/18 07:45 Labs: Laboratory Results - last 24 hr 12/30/18 12/30/18 12/30/18 07:45 07:45 07:50 WBC 9.9 RBC 4.49 L Hgb 14.4 Hct 41.1 MCV 91.4 MCH 32.0 MCHC 35.0 RDW 13.4 Plt Count 161 Neut % (Auto) 87.9 H Lymph % (Auto) 6.5 L [place] % (Auto) 5.5 Eos % (Auto) 0.0 L Baso % (Auto) 0.1 Neut # (Auto) 8700 H Lymph # (Auto) 600 L [place] # (Auto) 500 Eos # (Auto) 0 Baso # (Auto) 0 Sodium 133 L Potassium 3.4 Chloride 98 Carbon Dioxide 30 BUN 20 Creatinine 0.50 L Estimated GFR > 60.0 BUN/Creatinine Ratio 40.0 H Glucose 118 H Lactate 0.9 Calcium 8.8 Magnesium 2.1 Assessment & Plan Assessment & Plan narrative: Vishal Park is a 78-year-old male with a past medical history significant for hypertension, colon cancer status post partial colon resection with colostomy, chemo and radiation, and atrial fibrillation who presented to the ED for slurred speech and left-sided facial droop and facial numbness which now have resolved and are secondary to acute CVA. Patient then had abdominal distention and leukocytosis and was found to have SBO on 10/10. 1. Acute CVA, present on admission. Resolved. -Initial NIH score 5 due to slurred speech facial droop and facial numbness. His symptoms have since resolved but lasted for >24 hours. -CT brain without contrast and CTA head and neck did not demonstrate any acute intracranial abnormalities. MR stroke protocol demonstrated small acute infarcts involving the right insula and right temporal lobe with mild, diffuse cerebral volume loss and periventricular and subcortical white matter chronic microvascular ischemic change. Do not believe CVA to be embolic in nature and will discuss with radiology tomorrow. -Echocardiogram did not demonstrate intra-atrial shunt or embolic source. -Previous provider had an extensive discussion about anticoagulation with the patient and his spouse for which they would like to discuss this with his PCP, Dr. Corral, and to continue aspirin therapy alone at this time. -Continue physical and occupational therapy evaluation and treatment. Speech t herapy has signed off as speech has returned to normal. -Risk stratified with hemoglobin A1c which was normal at 4.9% and fasting lipid panel which demonstrated good control: Total cholesterol 156, triglycerides 114, LDL 86 (goal < 70), and HDL 47. -Continue aspirin 81 mg daily and atorvastatin 40 mg daily at bedtime for stroke prevention. 2. Acute small bowel obstruction, unclear if present on admission. Active. -Patient developed abdominal distension and concern for small bowel obstruction. -CT abdomen and pelvis with contrast demonstrated mechanical small bowel obstruction with the transition point in the left lower quadrant near the colostomy. Small volume of free fluid tracking in the pelvis. -Continue NPO at this time for bowel rest. Allow for medications only. Continue NG tube. -Continue IV fluids decreased from 100 mL/hr to 75 mL/hr due to low normal ejection fraction and atrial fibrillation with RVR. 3. Paroxysmal atrial fibrillation with mild RVR, acute on chronic, present on admission. -Patient currently in atrial fibrillation with heart rate 110's. -TSH normal at 1.68. -Echocardiogram demonstrated reduced EF of 40-45%, however patient was in atrial fibrillation with RVR. -Continue aspirin 81 mg daily. Previous provider had an extensive discussion about anticoagulation with the patient and his spouse for which they would like to discuss this with his PCP, Dr. Corral, and to continue aspirin therapy alone at this time. Patient previously had bleeding complications from his stoma on Eliquis. -Continue metoprolol tartrate 25 mg every 6 hours and will titrate as needed to better control heart rate. Hold parameters placed including SBP < 100 mm Hg and HR <60 bpm. -Treat underlying cause which is small-bowel obstruction as above. 4. Acute alcohol withdrawal, present on admission. Resolved. -Patient drinks at least 1 glass of wine per night and sometimes more. Wine per night. Patient developed anxiety, tongue fasciculations, and tremulousness whic h he was treated with 2 doses of librium and Ativan as needed with resolution. 5. Hypertension, chronic, present on admission. Stable. -Continue home medications amlodipine 10 mg daily and losartan 50 mg daily. Held triamterene/HCTZ. Disposition: Patient remains inpatient and will likely discharge either home with home health versus longterm facility for rehabilitation once small bowel obstruction has resolved. Quality VTE Deep Vein Thrombosis/Pulmonary Embolism Present on Admission: No
--- NOTE | 2018-12-30 14:18 | OT.IP.TRT ---
Current Diagnoses Cerebral infarction, unspecified (12/27/18) Surgery Performed Operation Date: 12/30/18 17:15 <No data on this case meets the specified criteria> Occupational Therapy Treatment Note M2 OT-IP Current Condition Start: 12/27/18 16:40 Freq: Status: Active Protocol: Document 12/27/18 16:40 [facility] (Rec: 12/27/18 17:05 [facility] [id number]) Occupational Therapy Current Condition Current Condition Evaluation Date 12/27/18 Treatment Diagnosis left side chest injury,slurred speech Diagnosis Onset Date 12/27/18 Weight Bearing Status Weight Bearing Status Weight Bear as Tolerated M3 OT- IP Subjective and Pain Start: 12/27/18 16:40 Freq: Status: Active Protocol: Document 12/30/18 13:57 [facility] (Rec: 12/30/18 14:18 [facility] [id number]) OT- Subjective Occupational Therapy Visit Type Type Treatment Note Visit Start Time 12:58 Visit Stop Time 13:54 Total Visit Minutes 56 Occupational Therapy Visit Comments Patient Comments Pt after talking to Hospitalist agreeable to take a shower and get up. OT Pain Assessment Pain When Pain Assessed At Rest Pain Present Pain Present Denied Pain M4 OT- IP ADL's Start: 12/27/18 16:40 Freq: Status: Active Protocol: Document 12/30/18 13:57 [facility] (Rec: 12/30/18 14:18 [facility] [id number]) OT ADL-Grooming General Evaluation Grooming Ability Standby Assistance Areas Needing Assistance Retrieving/Set-up of Grooming Items Comments OT Grooming Comments CGA while standing at the sink . MIN VC from for stoma care, pt needing extra time to think through what needed to be done but eventually able to problem solve his way through stoma management and care with change of ostomy bag. Nurse also present to work with pt on stoma care needs. CGA for for balance while standing at the sink. OT ADL-Dressing General Eval Upper Body Dressing Ability Standby Assistance Areas Needing Assistance Retrieving/Set-up of Clothing OT ADL-Toileting General Evaluation Toileting Ability Standby Assistance Comments OT Toileting Comments SBA set-up to get pt items while cleaning out his ostomy bag. OT ADL-Bathing Bathing Type Bathing Type Shower General Evaluation Bathing Ability Minimal Assistance Areas Needing Assistance Retrieving/Setting Up Items, Wash/Dry Upper Body Devices Bathing Equipment Hand Held Shower Sprayer, Shower Chair without Arms,Grab Bars Comments OT Bathing Comments Pt able to most of his showering while sitting and needing assist for his back and to help dry his feet. CGA while standing to do his own pericare needs. O2 reading from 91-93% on RA. KHOA for balance to help step over the threshold of the shower. M6 OT- IP Functional Cognition Start: 12/27/18 16:40 Freq: Status: Active Protocol: Document 12/30/18 13:57 [facility] (Rec: 12/30/18 14:18 [facility] [id number]) Cognitive Factors Limiting Selfcare Function Cognitive Ability Level of Alertness Alert Patient Orientation Name,Place,Situation Attention Span Ability Capable of Focused Attention, Capable of Sustained Attention Ability to Follow Commands Able to Follow Multi-Step Commands Safety Awareness Underestimates Need for Assistance Problem Solving Ability Needs Assist to Identify Solutions Cognitive Comments Cognitive Assessment Comments Pt increased time to process in order to do own stoma care. Pt initially forgot to use the [employer] chair to dry his stoma and then remembered after several seconds. Pt able to follow commands and a bit impulsive, may be affected as pt a little hard of hearing as well. M7 OT- IP Mobility and Balance Start: 12/27/18 16:40 Freq: Status: Active Protocol: Document 12/30/18 13:57 [facility] (Rec: 12/30/18 14:18 [facility] [id number]) OT- Bed Mobility Assessment Supine to Sit Supine to Sit Assist Standby Assistance,1 Person Assistance,Head of Bed Elevated OT-Transfer Assessment Sit to and From Stand Sit to and from Stand Standby Assistance,Contact Guard Assistance,1 Person Assistance Transfers Transfer Ability Contact Guard Assistance Technique Transfer Destination Bed,Chair,Shower Stall,Toilet Transfer Technique Stand Step Pivot Devices Transfer Assistive Devices Gait Belt,Front Wheeled Walker Comments Mobility Comments Pt a little unsteady on his feet without device and needing CGA on gait belt, pt had one loss of balance and needing KHOA. At this time would be better for pt to use FWW for safety. OT- Balance Assessment Sitting Balance and Reactions Static Sitting Balance Ability Normal Dynamic Sitting Balance Ability Normal Standing Balance and Reactions Static Standing Balance Ability Good Dynamic Standing Balance Ability Fair M8 OT- IP Objective Assessments Start: 12/27/18 16:40 Freq: Status: Active Protocol: M9 OT- IP Assessment and Plan Start: 12/27/18 16:40 Freq: Status: Active Protocol: Document 12/30/18 13:57 [facility] (Rec: 12/30/18 14:18 [facility] [id number]) OT Summary Assessment and Plan Potential Rehabilitation Potential Good Analytic Complexity at Evaluation Low Summary OT Impairments Balance,Functional Mobility, Dressing,Bathing,Toilet Transfers,Shower Transfers Progress Towards Goals Slow Progress due to Medical Issues Assessment Summary Rechecked pt's strength, LUE still weaker than RUE 4-/5 throughout, also noted that pt tends to hyperextend his left knee while standing and walking. Therefore his left arm is weaker than on OT eval as was 4/5 to 4-/5 from proximal to distal. Due to new medical issues pt now decreased activity tolerance and O2 on RA drops after shower and 3 minutes of standing to 88% , but recovers quickly after taking a few deep breaths. Goals Self-Feeding Goal Independent Grooming Goal Independent Dressing Goal Independent Toileting Goal Independent Bathing Goal Standby Assistance Toilet Transfer Goal Independent Shower Transfer Goal Independent Patient/Caregiver Education Goal Demonstrate Energy Conservation and Pacing, Caregiver Independent Assisting Patient Days to Meet Goals 5 Frequency of Treatment Frequency Of Treatment Once a Day Treatment Plan OT Treatment Plan ADL Training,Functional Cognition Training,Functional Mobility,Patient/Family Education,Discharge Planning Other Treatment Recommendations and Next Dressing, standing for Treatment Focus grooming needs Discharge Recommendations OT Discharge Recommendations Home with Assistance
--- NOTE | 2018-12-30 16:22 | PT.IPTN ---
Current Diagnoses Cerebral infarction, unspecified (12/27/18) Surgery Performed Operation Date: 12/30/18 17:15 <No data on this case meets the specified criteria> Physical Therapy Treatment Note M2 PT-IP Current Condition Start: 12/27/18 17:48 Freq: NEEDED Status: Active Protocol: Document 12/27/18 17:00 AB (Rec: 12/27/18 18:05 AB [id number]) Physical Therapy Current Condition Current Condition Evaluation Date 12/27/18 Treatment Diagnosis CVA; difficulty in walking Onset Date 12/27/18 M3 PT-IP Subjective Start: 12/27/18 17:48 Freq: NEEDED Status: Active Protocol: Document 12/30/18 16:22 SP (Rec: 12/30/18 16:50 SP [id number]) Subjective Physical Therapy Visit Type Type Treatment Note Visit Start Time 16:02 Visit Stop Time 16:22 Total Visit Minutes 20 Notes Pt agreeable to therapy today. Physical Therapy Visit Comments Patient Comments I would like to get up and move around. M4 PT-IP Mobility and Gait Start: 12/27/18 17:48 Freq: NEEDED Status: Active Protocol: Document 12/30/18 16:22 SP (Rec: 12/30/18 16:50 SP [id number]) PT-Bed Mobility Assessment Sit to Supine Sit to Supine Standby Assistance Scooting Scooting Up and Down in Bed Standby Assistance PT-Transfer Assessment Sit to and From Stand Sit to and from Stand Contact Guard Assistance Equipment Transfer Assistive Device Front Wheeled Walker Orthotic/Prosthetic Devices or Brace: No Transfers Transfer Destination Bed,Chair Transfer Ability Level of Assist Contact Guard Assistance,Use of Upper Extremities Comments Mobility Comments Educated patient on safety awareness of tubing during transfers and gait, provided max assistance for tubing (O2 found on side of cheek vs nose ). Gait Assessment Gait Gait Assistance Required: Contact Guard Assist Distance (Feet) 30 Able to Maintain Weight Bearing Status Yes During Gait Assistive Devices Assistive Device Front Wheeled Walker Orthotic/Prosthetic Devices or Brace: No Gait Deviations General Gait Pattern Decreased Stride Length,Flexed Trunk Factors Limiting Gait Function Factors Limiting Gait Function Decreased Activity Tolerance, Decreased Strength,Poor Safety Awareness Comments Gait Comments Cued for Fww positioning around side of bed for safety with obstacles, improved post cues. M5 PT-IP Objective Assessments Start: 12/27/18 17:48 Freq: NEEDED Status: Active Protocol: Document 12/27/18 17:00 AB (Rec: 12/27/18 18:05 AB [id number]) Orientation Orientation/Cognition Level of Alertness Alert Orientation Name,Age,Place,Situation Language Function Ability No Deficits Noted Safety Awareness Understands Safety Issues Memory Description No Deficits Noted Gross Range of Motion Lower Extremity ROM Assessment Within Functional Limits Strength Lower Extremity Strength Assessment Within Functional Limits Hip 4+/5 Knee 4+/5 Sensation Assessment Sensation Gross Sensation WNL Muscle Tone Muscle Tone WNL Yes M6 PT-IP Treatment Start: 12/27/18 17:48 Freq: NEEDED Status: Active Protocol: Document 12/27/18 17:00 AB (Rec: 12/27/18 18:05 AB [id number]) Physical Therapy Treatment Education Education Provided Safety M7 PT-IP Assessment and Plan Start: 12/27/18 17:48 Freq: NEEDED Status: Active Protocol: Document 12/30/18 16:22 SP (Rec: 12/30/18 16:50 SP [id number]) PT Summary Assessment and Plan Potential Rehabilitation Potential Good Status of Condition at Evaluation Evolving Summary Impairments Strength,Balance,Coordination, Cognition,Bed Mobility, Transfers,Gait,Activity Tolerance Progress Towards Goals Progressing Toward Goals,Slow Progress due to Medical Issues ,Slow Progress due to Activity Tolerance Assessment Summary See mobility comments. Goals Bed Mobility Goal Independent Transfer Goal Independent Gait Goal Independent Gait Distance 300 Days to Meet Goals 3 Frequency of Treatment Frequency Of Treatment Once a Day Treatment Plan Physical Therapy Treatment Plan Bed Mobility Training,Transfer Training,Gait Training, Therapeutic Exercise,Balance Retraining,Hot or Cold Pack, Neuromuscular Re-ed, Coordination Retraining Other Recommendations and Next Treatment standing balance, long Focus distance ambulation without AD , stair climbing Recommendations To Nursing Amount of Assist Needed 1 Person Assist Discharge Recommendations PT Discharge Recommendations Home
--- NOTE | 2018-12-30 16:24 | PT-IP ANOTE ---
Pt refused therapy this afternoon, I don't want to go, I am comfortable and want to just stay in my chair.
[2018-12-30] MEDS: POTASSIUM CHLORIDE 60 MEQ in SODIUM CHLORIDE 0.9% 500 ML 88.333 ML IV (19:06)
[2018-12-30] MEDS: ATORVASTATIN 20 MG TABLET 40 MG PO (22:06)
[2018-12-30 22:53] LABS: Bacteria Urine None Seen; RBC Urine None Seen (0-5/HPF)
[2018-12-30 22:54] LABS: Appearance Urine UA CLEAR; Bilirubin Urine UA NEGATIVE (NEGATIVE); Color Urine UA YELLOW; Glucose Urine UA NEGATIVE (Negative); Ketones Urine UA 2+ (NEGATIVE); Leukocyte Esterase Urine UA NEGATIVE (NEGATIVE); Nitrite Urine UA NEGATIVE (Negative); Occult Blood Urine UA NEGATIVE (Negative); Protein Urine UA TRACE (Negative); pH Urine UA 6.5 (4.5-8.0)
--- NOTE | 2018-12-30 23:14 | PC.NURSE ---
Assumed care of pt at 1500. Pt resting in bed during bedside hand-off. NG tube to Low cont suction. Rec calls from ICU stating pt is in A fib RVR with rate 115-150 90% of time. Notified provider. Low urine output, Bladder scanning for post void residuals. NG suction turned off for 1 hr with po med administrations.
[2018-12-30 23:15] LABS: Culture Indicated Urine Cult Not Indicated; Mucus Urine 1+ (Negative); WBC Urine 0-1/HPF (0-5/HPF)
[2018-12-31] VITALS (13 sets, daily range): BP systolic 110–135; BP diastolic 68–87; PULSE 95–116; RESP 14–24; TEMP 36.4–37.5; O2SAT 92–98
[2018-12-31] MEDS: METOPROLOL IR 25 MG TABLET PO ×3 (00:35→11:57)
[2018-12-31] MEDS: BENZOCAINE/MENTHOL 1 LOZ PKT 1 EACH PO ×2 (00:37→06:54)
[2018-12-31 05:51] LABS: Alanine Aminotransferase 17 IU/L (21-72); Albumin 3.5 g/dL (3.5-5.0); Albumin Globulin Ratio 1.3 (1.0-2.8); Alkaline Phosphatase 33 U/L (38-126); Aspartate Aminotransferase 25 IU/L (17-59); Bilirubin Total 1.5 mg/dL (0.2-1.3); Blood Urea Nitrogen 20 mg/dL (9-20); Calcium 8.9 mg/dL (8.4-10.2); Carbon Dioxide 27 mmol/L (22-32); Chloride 104 mmol/L (98-107); Estimated Glomerular Filt Rate > 60.0 mL/min (>60); Globulin 2.6 g/dL (1.7-4.1); Glucose 96 mg/dL (80-110); HEMOLYSIS 47 (0-50); Magnesium 2.2 mg/dL (1.6-2.3); Potassium 3.6 mmol/L (3.4-5.1); Sodium 138 mmol/L (137-145); Total Protein 6.1 g/dL (6.3-8.2)
[2018-12-31 06:58] LABS: Add Manual Diff / Slide Review NO; Basophils Absolute Auto 100 /uL (0-100); Basophils Percent Auto 0.7 % (0-2); Eosinophils Absolute Auto 0 /uL (0-450); Eosinophils Percent Auto 0.2 % (2-4); Hematocrit 37.5 % (41-53); Hemoglobin 13.3 g/dL (13.5-17.5); Lymphocytes Absolute Auto 800 /uL (1100-4500); Mean Corpuscular HGB Conc 35.3 % (30-36); Mean Corpuscular Hemoglobin 32.2 PG (26-34); Monocytes Absolute Auto 700 /uL (0-900); Monocytes Percent Auto 9.5 % (3-14); Neutrophils Absolute Auto 6000 /uL (1500-7000); Neutrophils Percent Auto 79.6 % (50-75); Platelet Count 154 X10^3/uL (150-400); Red Blood Cell Count 4.12 X10^6/uL (4.5-5.9); Red Cell Distribution Width 13.2 % (11.6-14.8); White Blood Cell Count 7.6 X10^3/uL (4.5-11.0)
[2018-12-31] MEDS: ASPIRIN EC 81 MG TABLET PO (08:37)
[2018-12-31] MEDS: AMLODIPINE 5 MG TABLET 10 MG PO (08:37)
[2018-12-31] MEDS: CHOLECALCIFEROL (VITAMIN D3) 1,000 UNIT TABLET 4000 UNIT PO (08:37)
[2018-12-31] MEDS: ASCORBIC ACID 500 MG TABLET 1000 MG PO (08:37)
[2018-12-31] MEDS: HEPARIN 5,000 UNIT/ML VIAL 5000 UNIT SUBCUT ×2 (08:38→20:42)
[2018-12-31] MEDS: LOSARTAN 50 MG TABLET PO (08:38)
[2018-12-31] MEDS: MONTELUKAST 10 MG TABLET PO (08:39)
--- NOTE | 2018-12-31 08:51 | DI.RAD.S_ITS ---
PROCEDURE: XR ABDOMEN 3V INDICATIONS: SBO TECHNIQUE: One view chest and two views of the abdomen were acquired. COMPARISON: [facility], CT, CT ABDOMEN PELVIS W CON, 12/29/2018, 9:59. [facility], CR, XR ACUTE ABDOMEN SERIES, 12/30/2018, 8:12. FINDINGS: Surgical changes and devices: A gastric tube is seen, with the tip along the distal aspect of the stomach. Clips are seen. Chest: Likely atelectasis can be seen within the lungs. Heart size is normal. No pleural effusions. No pneumoperitoneum. Abdomen: Bowel gas pattern is normal. No suspicious calcifications. Visualized solid organ contours appear normal. Bones: No suspicious bony lesions. Age-appropriate bony degenerative changes are seen. IMPRESSION: The previously seen dilated loops of bowel are no longer seen. The small bowel obstruction is believed to have resolved. The tip of the gastric tube overlies the distal stomach. Dictated by: Omero Chase M.D. on 12/31/2018 at 9:00 Approved by: Omero Chase M.D. on 12/31/2018 at 9:03
--- NOTE | 2018-12-31 09:05 | PC.NURSE ---
Addendum entered by Verito Canales R.N. 12/31/18 12:04: NG tube removed. Flushed with 30 cc mineral oil and 30 cc water prior to removal. Patient tolerated well but requested a moment before working with OT. Up to chair for meal. Original Note: Patient resting in bed with NG suction to continuous, NS a@ 75, IV site is CDI. Patient denies SOB, chest pain, N/V or pain. Patient is A/O x 3. Patient given meds with sips. Difficulty swallowing due to NG tube and sore throat per pt. NG clamped for 1 hour. Patient at 96% on room air, lungs clear bilaterally. Patient up to wheelchair at 0915 for transfer to . Patient tolerated well. Linen changed. Noted urine incontinence in the bed, charted as unmeasured void.
--- NOTE | 2018-12-31 10:06 | P.PN_ITS ---
Subjective Subjective Date Patient Seen: 12/31/18 Time Patient Seen: 10:06 Interval history: Day 3 for this patient with resolving small bowel obstruction. Patient denies any pain. No nausea vomiting. Nasogastric tube produced only 200 cc over the last shift. Abdominal film this morning show normal colon gas pattern with contrast from his CT now noted throughout the colon. Patient has stool in his colostomy bag. Exam Vital Signs (past 8 hours): - 12/31/18 04:00 12/31/18 04:07 12/31/18 08:00 Temperature 98.7 F 98.1 F Pulse Rate 98 H 105 H Respiratory Rate 18 18 Blood Pressure 128/73 128/71 Pulse Oximetry 95 94 95 12/31/18 08:38 12/31/18 09:00 12/31/18 09:20 Temperature Pulse Rate 95 H Respiratory Rate Blood Pressure 128/71 Pulse Oximetry 95 96 Oxygen Delivery Method Room Air Oxygen Flow Rate 2 Narrative Exam Narrative: Patient has no complaints. Afebrile. Abdomen not distended it is soft and nontender. There is stool noted in the stoma bag. Objective Labs Result Diagrams: 12/31/18 05:00 12/31/18 05:00 Labs: Laboratory Results - last 24 hr 12/30/18 12/31/18 12/31/18 22:35 05:00 05:00 WBC 7.6 RBC 4.12 L Hgb 13.3 L Hct 37.5 L MCV 91.0 MCH 32.2 MCHC 35.3 RDW 13.2 Plt Count 154 Neut % (Auto) 79.6 H Lymph % (Auto) 10.0 L Travis % (Auto) 9.5 Eos % (Auto) 0.2 L Baso % (Auto) 0.7 Neut # (Auto) 6000 Lymph # (Auto) 800 L Travis # (Auto) 700 Eos # (Auto) 0 Baso # (Auto) 100 Sodium 138 Potassium 3.6 Chloride 104 Carbon Dioxide 27 BUN 20 Creatinine 0.50 L Estimated GFR > 60.0 BUN/Creatinine Ratio 40.0 H Glucose 96 Calcium 8.9 Magnesium 2.2 Total Bilirubin 1.5 H AST 25 ALT 17 L Alkaline Phosphatase 33 L Total Protein 6.1 L Albumin 3.5 Globulin 2.6 Albumin/Globulin Ratio 1.3 Urine Color Yellow Urine Appearance Clear Urine pH 6.5 Ur Specific [place] 1.010 Urine Protein Trace H Urine Glucose (UA) Negative Urine Ketones 2+ H Urine Occult Blood Negative Urine Nitrate Negative Urine Bilirubin Negative Urine Urobilinogen 4.0 H Ur Leukocyte Esterase Negative Urine RBC None seen Urine WBC 0-1/hpf Urine Bacteria None seen Urine Mucus 1+ H Ur Culture Indicated? Cult not indicated Assessment & Plan Assessment & Plan narrative: Small bowel obstruction has resolved with nasogas tric decompression. We will remove the tube. Start a full liquid diet. Quality VTE Deep Vein Thrombosis/Pulmonary Embolism Present on Admission: No
--- NOTE | 2018-12-31 11:09 | CM.DPC ---
DCP Cont: Met with patient in his room, , [place], at bedside. Patient is alert and oriented, pleasant. Introduced self and role. Discussed discharge planning, and if there are any resources needed. Patient and stated, they do not think that they need any assistance, and should be able to manage at home. Patient is to be having his NG tube removed today. Patient is hoping to discharge today. Let him know that they may need to monitor him and see how he does once they remove the NG tube, and ensure that he can tolerate his diet. He will be working more with physical therapy today. P: DCP to continue to follow closely. Patient's goal and wishes are to go home. Mely Mendoza RN/[employer]
[2018-12-31] MEDS: MINERAL OIL 473 ML OIL 30 ML PO (11:32)
[2018-12-31] MEDS: POTASSIUM CHLORIDE 60 MEQ in SODIUM CHLORIDE 0.9% 500 ML 88.333 ML IV (11:43)
[2018-12-31] MEDS: METOPROLOL TARTRATE 5 MG/5 ML INJ IV (13:41)
--- NOTE | 2018-12-31 14:19 | PM.PN.1 ---
Subjective Subjective Date Patient Seen: 12/31/18 Interval history: Vishal Park is a 78-year-old male with a past medical history significant for hypertension, colon cancer status post partial colon resection with colostomy, chemo and radiation, and atrial fibrillation who presented to the ED for slurred speech and left-sided facial droop and facial numbness which now have resolved and are secondary to acute CVA. Patient then had abdominal distention and leukocytosis and was found to have SBO on 12/29. Interval history: Patient continues to be in atrial fibrillation with average heart rate 110's. NG tube had very little output overnight approx 200 cc. The patient is resting in bed comfortably. He continues to feel mildly weak. He complains of NG tube causing discomfort and sore throat and is eager to have it removed today. General surgery plans to administer mineral oil down NG tube and remove afterwards. Plan to advance diet slowly afterward. Patient has recovered well from CVA without ovious deficit. He has no other complaints and denies headache, shortness of breath, chest pain, abdominal pain, vomiting, fever, chills, dysuria, diarrhea or constipation. He is voiding and eliminating without difficulty. He is up ambulating with assistance. Exam Vital Signs (past 8 hours): - 12/31/18 08:00 12/31/18 08:38 12/31/18 09:00 Temperature 98.1 F Pulse Rate 105 H 95 H Respiratory Rate 18 Blood Pressure 128/71 128/71 Pulse Oximetry 95 95 12/31/18 09:20 12/31/18 11:55 Temperature Pulse Rate 110 H Respiratory Rate 14 Blood Pressure 135/77 Pulse Oximetry 96 93 Oxygen Delivery Method Room Air Oxygen Flow Rate 2 Narrative Exam Narrative: General: Elderly male lying in bed and in no acute distress, appears ill, well-developed, well-nourished, appropriately interactive. HEENT: Normocephalic, atraumatic. External ears without defect. Pupils equal, round, and reactive to light. Anicteric sclerae, moist conjunctivae, and no lid lag. NG tube in place. Neck: Supple with full range of motion. No jugular venous distension. No lymphadenopathy or thyromegaly. Cardiovascular: Irregularly irregular, tachycardic, without murmurs, rubs, or gallops appreciated Pulmonary: Clear to auscultation bilaterally without crackles, wheezes, or rhonchi. Normal respiratory effort with no use of accessory muscles. Abdomen: Soft, bowel sounds present, nontender, mild distension. No hepatosplenomegaly or masses appreciated. Colostomy in left side of abdomen without surrounding erythema. Extremities: No clubbing, cyanosis, or edema. Skin: Normal temperature, turgor, and texture; no rash, ulcers, or subcutaneous nodules appreciated. Neurological: Cranial nerves grossly intact. Generalized weakness. Psychiatric: Normal mood and affect. Alert and oriented to person, place, and time. Objective Labs Result Diagrams: 12/31/18 05:00 01/01/19 10:42 Labs: Laboratory Results - last 24 hr 12/30/18 12/31/18 12/31/18 22:35 05:00 05:00 WBC 7.6 RBC 4.12 L Hgb 13.3 L Hct 37.5 L MCV 91.0 MCH 32.2 MCHC 35.3 RDW 13.2 Plt Count 154 Neut % (Auto) 79.6 H Lymph % (Auto) 10.0 L Faulk % (Auto) 9.5 Eos % (Auto) 0.2 L Baso % (Auto) 0.7 Neut # (Auto) 6000 Lymph # (Auto) 800 L Faulk # (Auto) 700 Eos # (Auto) 0 Baso # (Auto) 100 Sodium 138 Potassium 3.6 Chloride 104 Carbon Dioxide 27 BUN 20 Creatinine 0.50 L Estimated GFR > 60.0 BUN/Creatinine Ratio 40.0 H Glucose 96 Calcium 8.9 Magnesium 2.2 Total Bilirubin 1.5 H AST 25 ALT 17 L Alkaline Phosphatase 33 L Total Protein 6.1 L Albumin 3.5 Globulin 2.6 Albumin/Globulin Ratio 1.3 Urine Color Yellow Urine Appearance Clear Urine pH 6.5 Ur Specific Rothschild 1.010 Urine Protein Trace H Urine Glucose (UA) Negative Urine Ketones 2+ H Urine Occult Blood Negative Urine Nitrate Negative Urine Bilirubin Negative Urine Urobilinogen 4.0 H Ur Leukocyte Esterase Negative Urine RBC None seen Urine WBC 0-1/hpf Urine Bacteria None seen Urine Mucus 1+ H Ur Culture Indicated? Cult not indicated Assessment & Plan Assessment & Plan narrative: Vishal Park is a 78-year-old male with a past medical history significant for hypertension, colon cancer status post partial colon resection with colostomy, chemo and radiation, and atrial fibrillation who presented to the ED for slurred speech and left-sided facial droop and facial numbness which now have resolved and are secondary to acute CVA. Patient then had abdominal distention and leukocytosis and was found to have SBO on 12/29. 1. Acute CVA, present on admission. Resolved. -Initial NIH score 5 due to slurred speech facial droop and facial numbness. His symptoms have since resolved but lasted for >24 hours. -CT brain without contrast and CTA head and neck did not demonstrate any acute intracranial abnormalities. MR stroke protocol demonstrated small acute infarcts involving the right insula and right temporal lobe with mild, diffuse cerebral volume loss and periventricular and subcortical white matter chronic microvascular ischemic change. Do not believe CVA to be embolic in nature and will discuss with radiology tomorrow. -Echocardiogram did not demonstrate intra-atrial shunt or embolic source. -Previous provider had an extensive discussion about anticoagulation with the patient and his spouse for which they would like to discuss this with his PCP, Dr. Corral, and to continue aspirin therapy alone at this time. -Continue physical and occupational therapy evaluation and treatment. Speech therapy has signed off as speech has returned to normal. -Risk stratified with hemoglobin A1c which was normal at 4.9% and fasting lipid panel which demonstrated good control: Total cholesterol 156, triglycerides 114, LDL 86 (goal < 70), and HDL 47. -Continue aspirin 81 mg daily and atorvastatin 40 mg daily at bedtime for stroke prevention. 2. Acute small bowel obstruction, unclear if present on admission. Resolving. -Patient developed abdominal distension and concern for small bowel obstruction. -CT abdomen and pelvis with contrast demonstrated mechanical small bowel obstruction with the transition point in the left lower quadrant near the colostomy. Small volume of free fluid tracking in the pelvis. -KUB x-ray demonstrated resolution of SBO. -Plan to remove NG tube after mineral oil has been administered and will slowly advance diet today. -Continue IV fluids 75 mL/hr and will discontinue once adequately taking in PO intake. 3. Paroxysmal atrial fibrillation with mild RVR, acute on chronic, present on admission. -Patient currently in atrial fibrillation with heart rate 110's. -TSH normal at 1.68. -Echocardiogram demonstrated mildly reduced EF of 40-45% likely tachyarrhythmia induced from atrial fibrillation. -Continue aspirin 81 mg daily. Previous provider had an extensive discussion about anticoagulation with the patient and his spouse for which they would like to discuss this with his PCP, Dr. Corral, and to continue aspirin therapy alone at this time. Patient previously had bleeding complications from his stoma on Eliquis. -Continue metoprolol tartrate increased from 25 mg to 50 mg every 6 hours and will continue to titrate as needed to better control heart rate. Hold parameters placed including SBP < 100 mm Hg and HR <60 bpm. Ordered 500 cc NS bolus to fluid challenge patient to see if this improves heart rate. May consider digoxin in the future if his heart rate continues to be difficult to control. -Treat underlying cause which is small-bowel obstruction as above. 4. Acute alcohol withdrawal, present on admission. Resolved. -Patient drinks at least 1 glass of wine per night and sometimes more. Wine per night. Patient developed anxiety, tongue fasciculations, and tremulousness which he was treated with 2 doses of librium and Ativan as needed with resolution. 5. Hypertension, chronic, present on admission. Stable. -Continue home medications amlodipine 10 mg daily and losartan 50 mg daily. Held triamterene/HCTZ. Disposition: Patient likely to discharge in the next 1-2 days once tolerating advancement of diet. Quality VTE Deep Vein Thrombosis/Pulmonary Embolism Present on Admission: No
[2018-12-31] MEDS: METOPROLOL IR 25 MG TABLET 50 MG PO (19:00)
[2018-12-31] MEDS: SODIUM CHLORIDE 0.9% 500 ML 1000 ML IV (19:01)
[2018-12-31] MEDS: ATORVASTATIN 20 MG TABLET 40 MG PO (20:42)
[2018-12-31] MEDS: ACETAMINOPHEN 325 MG TABLET 650 MG PO (20:51)
[2019-01-01] MEDS: METOPROLOL IR 25 MG TABLET 50 MG PO ×2 (00:49→06:46)
[2019-01-01 01:07] VITALS: O2SAT 94
[2019-01-01 05:00] VITALS: BP 131/75; PULSE 90; RESP 18; TEMP 37.2; O2SAT 94
[2019-01-01 07:00] VITALS: O2SAT 96
[2019-01-01 08:00] VITALS: BP 117/80; PULSE 89; RESP 18; TEMP 36.6; O2SAT 91
[2019-01-01] MEDS: HEPARIN 5,000 UNIT/ML VIAL 5000 UNIT SUBCUT (09:27)
[2019-01-01] MEDS: CHOLECALCIFEROL (VITAMIN D3) 1,000 UNIT TABLET 4000 UNIT PO (09:27)
[2019-01-01] MEDS: LOSARTAN 50 MG TABLET PO (09:28)
[2019-01-01] MEDS: ASPIRIN EC 81 MG TABLET PO (09:28)
--- NOTE | 2019-01-01 10:14 | PC.NURSE ---
Addendum entered by Sheri Young R.N. 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 Escorted via wc by cold type artist to spouse's car. Addendum entered by Sheri Young R.N. 01/01/19 11:25: MS - up with phys therapy, has spouse at side w/gait belt, phys therapy on other side, taking small shuffle steps, ambul out into hallway to desk area and then ret to chair, spouse at side. Original Note: AM NOTE - pt is alert, speech is clear, responses appropriate, no facial droop noted, cell assembly pinner are equal and strong, no le weakness, pt able stand and ambul to br, colostomy bag w/air and liq, pt into br and emptied 800ml brown liq from bag, tracey full liq w/o nausea, denies pain, ra 96%.
[2019-01-01 11:04] LABS: Blood Urea Nitrogen 17 mg/dL (9-20); Calcium 9.3 mg/dL (8.4-10.2); Carbon Dioxide 26 mmol/L (22-32); Chloride 104 mmol/L (98-107); Estimated Glomerular Filt Rate > 60.0 mL/min (>60); Glucose 118 mg/dL (80-110); HEMOLYSIS < 15 (0-50); Magnesium 2.1 mg/dL (1.6-2.3); Potassium 3.4 mmol/L (3.4-5.1); Sodium 138 mmol/L (137-145)
--- NOTE | 2019-01-01 11:30 | PM.DS.1 ---
History of Present Illness History of Present Illness Date Patient Seen: 12/27/18 Chief complaint: left side chest injury/slurred speach Narrative: Written by Dr. Jeffery: Mr. Park is a 78-year-old male with past medical history of hypertension, colon cancer s/p resection and chemo/radiation (dx 2004) with stoma, and AFib (dx one year ago, follows with Dr. Corral who presented to the ED the request of family for slurred speech, facial droop and facial numbness. Yesterday evening around 10:00 p.m. the patient had a mechanical fall where he tripped and hit the left side of his face, he denies any loss of consciousness or preceeding nausea, vomiting, palpitations, chest pain, dizziness. Afterwards he was noted to have a left-sided facial droop with trouble speaking by his . He did not want to come to the ER at that time, however his convinced him to come this morning. In the morning he also noted a headache that improved with Tylenol. The headache was dull, diffuse, and non-radiating. He denies any recent fever, chills, cough, shortness of breath, lower extremity edema, palpitations. Symptoms are improving at this time, and the patient has no further facial numbness at this time. His at bedside reports improved facial droop as well. He was taken off of Eliquis 1 years ago after complications of bleeding from his stoma. Discharge Providers Provider Date of admission: 12/27/18 10:16 Discharge Date: 01/01/19 Primary care physician: Jerry Corral MD Consults: 12/27/18 11:56 Consult to Discharge Planning Routine Comment: Consult to Occupational Therapy Evaluate & Treat Comment: Physician Instructions: Evaluate and treat Consult to Physical Therapy Evaluate & Treat Comment: Physician Instructions: Evaluate and Treat Consult to Speech Therapy Evaluate & Treat Comment: Physician Instructions: Evaluate and treat 12/29/18 11:20 Consult to General Surgery Routine Comment: Consulting Provider: Siva Jackson Reason for consultation: SBO Has provider been notified: Yes Discharge provider: Dejah Mcnamara DO Summary Hospital Course Discharge Diagnosis: 1. Acute CVA, present on admission. Resolved. 2. Acute small bowel obstruction, unclear if present on admission. Resolved. 3. Paroxysmal atrial fibrillation with mild RVR, acute on chronic, present on admission. RVR resolved. 4. Newly diagnosed HFrEF 40-45%, present on admission. Stable. 5. Acute alcohol withdrawal, present on admission. Resolved. 6. Hypertension, chronic, present on admission. Stable. Hospital Course: Vishal Park is a 78-year-old male with a past medical history significant for hypertension, colon cancer status post partial colon resection with colostomy, chemo and radiation, and atrial fibrillation who presented to the ED for slurred speech and left-sided facial droop and facial numbness which now have resolved and are secondary to acute CVA. Patient then had abdominal distention and leukocytosis and was found to have SBO on 12/29. 1. Acute CVA, present on admission. Resolved. -Initial NIH score 5 due to slurred speech facial droop and facial numbness. His symptoms have since resolved but lasted for >24 hours. -CT brain without contrast and CTA head and neck did not demonstrate any acute intracranial abnormalities. -MR stroke protocol demonstrated small acute infarcts involving the right insula and right temporal lobe with mild, diffuse cerebral volume loss and periventricular and subcortical white matter chronic microvascular ischemic change. Reviewed MRI with Radiology and due to patient's CVAs being in one vascular distribution the likely etiology of CVAs are ischemic rather than embolic/thrombotic. -Echocardiogram did not demonstrate intra-atrial shunt or embolic source. -Previous provider had an extensive discussion about anticoagulation with the patient and his spouse for which they would like to discuss this with his PCP, Dr. Corral, and to continue aspirin therapy alone at this time. -Continued physical, occupational, and speech therapies evaluation and treatment. Patient has no further needs in regard to outpatient therapy. -Risk stratified with hemoglobin A1c which was normal at 4.9% and fasting lipid panel which demonstrated good control: Total cholesterol 156, triglycerides 114, LDL 86 (goal < 70), and HDL 47. -Continued aspirin 81 mg daily and atorvastatin 40 mg daily at bedtime for stroke prevention. 2. Acute small bowel obstruction, unclear if present on admission. Resolved. -Patient developed abdominal distension and concern for small bowel obstruction. -CT abdomen and pelvis with contrast demonstrated mechanical small bowel obstruction with the transition point in the left lower quadrant near the colostomy. Small volume of free fluid tracking in the pelvis. -Serial KUB x-rays demonstrated resolution of SBO. -Patient was initially NPO for bowel rest and NG tube placed for bowel decompression. NG tube removed once low output and SBO resolved by x-ray. The patient's diet was advanced which he tolerated well. -Continue gentle IV fluid hydration until adequately taking in PO intake then discontinued. 3. Paroxysmal atrial fibrillation with mild RVR, acute on chronic, present on admission. RVR resolved. -Patient currently in atrial fibrillation with heart rate 110's. -TSH normal at 1.68. -Echocardiogram demonstrated mildly reduced EF of 40-45% likely tachyarrhythmia induced from atrial fibrillation. -Continue aspirin 81 mg daily. Previous provider had an extensive discussion about anticoagulation with the patient and his spouse for which they would like to discuss this with his PCP, Dr. Corral, and to continue aspirin therapy alone at this time. Patient previously had bleeding complications from his stoma on Eliquis. -Patient continued to have atrial fibrillation with mild RVR which was difficult to control. Continue metoprolol tartrate which was titrated to effect. Patient also received maintenance IV fluids and IV fluid bolus challenge as it was felt that the patient was slightly dry provoking tachycardia for which the patient responded well and heart rate improved. The patient was discharged on metoprolol tartrate 75 twice daily. May consider digoxin in the future if his heart rate continues to be difficult to control. 4. Newly diagnosed HFrEF 40-45%, present on admission. Stable. -Does not represent acute exacerbation. -Echocardiogram performed to rule out embolic etiology for CVA and found mildly reduced EF of 40-45% likely tachyarrhythmia induced. -Patient is on metoprolol tartrate and losartan for heart rate control and hypertension. Discontinued amlodipine as contraindicated in HFrEF. -Recommend outpatient referral to Cardiology to better control atrial fibrillation and manage CHF. 5. Acute alcohol withdrawal, present on admission. Resolved. -Patient drinks at least 1 glass of wine per night and sometimes more. Wine per night. Patient developed anxiety, tongue fasciculations, and tremulousness which he was treated with 2 doses of librium and Ativan as needed with resolution. 6. Hypertension, chronic, present on admission. Stable. -Continued home losartan 50 mg daily. Discontinued amlodipine due to mild HFrEF. Discontinued triamterene and hydrochlorothiazide due to high risk of dehydration leading to atrial fibrillation with RVR. Continued metoprolol tartrate increased from 25 mg to 75 mg twice daily. Exam Vital Signs (past 8 hours): - 01/01/19 05:00 01/01/19 07:00 01/01/19 08:00 Temperature 98.9 F 98 F Pulse Rate 90 89 Respiratory Rate 18 18 Blood Pressure 131/75 117/80 Pulse Oximetry 94 96 91 Oxygen Delivery Method Room Air Oxygen Flow Rate 2 Narrative Exam Narrative: General: Elderly male lying in bed and in no acute distress, well-developed, well-nourished, appropriately interactive. HEENT: Normocephalic, atraumatic. External ears without defect. Pupils equal, round, and reactive to light. Anicteric sclerae, moist conjunctivae, and no lid lag. Neck: Supple with full range of motion. No jugular venous distension. No lymphadenopathy or thyromegaly. Cardiovascular: Irregularly irregular, normal rate, without murmurs, rubs, or gallops appreciated Pulmonary: Clear to auscultation bilaterally without crackles, wheezes, or rhonchi. Normal respiratory effort with no use of accessory muscles. Abdomen: Soft, bowel sounds present, nontender, mild distension. No hepatosplenomegaly or masses appreciated. Colostomy in left side of abdomen without surrounding erythema. Extremities: No clubbing, cyanosis, or edema. Skin: Normal temperature, turgor, and texture; no rash, ulcers, or subcutaneous nodules appreciated. Neurological: Cranial nerves grossly intact. Left-sided facial droop and slurred speech resolved. No apparent focal neurological deficits. Psychiatric: Normal mood and affect. Alert and oriented to person, place, and time. Objective Labs Result Diagrams: 12/31/18 05:00 01/01/19 10:42 Labs: Laboratory Results - last 24 hr 01/01/19 10:42 Sodium 138 Potassium 3.4 Chloride 104 Carbon Dioxide 26 BUN 17 Creatinine 0.50 L Estimated GFR > 60.0 BUN/Creatinine Ratio 34.0 H Glucose 118 H Calcium 9.3 Magnesium 2.1 Discharge Plan Discharge Plan Patient Disposition: Home Discharge comment: You are being discharged home. You had a stroke and have been prescribed aspirin 81 mg daily (aspirin 325 mg only increases your risk of bleeding and does not offer any added protection) and atorvastatin 40 mg daily at bedtime for stroke prevention. Your metoprolol tartrate has been increased to 75 mg twice daily to help control your atrial fibrillation better. You have mild heart failure that is likely due to uncontrolled atrial fibrillation over time. Recommend your PCP refer you to Cardiology. Please follow-up with your PCP, Dr. Corral, in the next 1 week regarding your hospitalization and for follow-up lab work. Your triamterene/hydrochlorothiazide has been discontinued for now but may need to be restarted in the future per your PCP. Your amlodipine has been discontinued as this is contraindicated with heart failure. You may discuss more potent blood thinners than aspirin with your PCP and/or clinical trial educator. You also had a small bowel obstruction which is resolved. Please consume a soft diet for the next several days and slowly advance to your normal diet. You have also been placed on potassium chloride 20 mEq daily to keep your potassium level normal which may be temporary or may need to be long-term based on your lab work and potassium levels. Discharge Med Rec/Prescriptions Prescriptions: New atorvastatin [Lipitor] 20 mg Tablet 40 mg PO BEDTIME Qty: 60 RF: 0 aspirin 81 mg Tablet,Delayed Release (Dr/Ec) 81 mg PO DAILY Qty: 30 RF: 0 metoprolol tartrate 75 mg tablet 75 mg PO BID Qty: 60 RF: 0 potassium chloride 20 mEq tablet extended release 20 meq PO DAILY Qty: 30 RF: 0 Continued losartan 50 mg tablet 50 mg PO DAILY RF: 0 montelukast 10 mg tablet 10 mg PO DAILY RF: 0 ascorbic acid (vitamin C) 1,000 mg Tablet 1,000 mg PO DAILY RF: 0 Vitamin D3 4,000 unit Capsule 4,000 unit PO DAILY RF: 0 Discontinued amlodipine 10 mg tablet 10 mg PO DAILY RF: 0 triamterene-hydrochlorothiazid 37.5-25 mg tablet 0.5 tab PO DAILY RF: 0 metoprolol tartrate 25 mg tablet 25 mg PO BID RF: 0 aspirin 325 mg Tablet 325 mg PO DAILY RF: 0 Other Ambulatory Orders: Basic Metabolic Panel (Stat) Timeframe: 3 Days Facility: [facility] - Location: Laboratory Ordered By: Dejah Mcnamara Follow up/Referrals: Jerry Corral MD [Primary Care Provider] - 3-5 Days Provider Discharge Instructions Diet: Diet as Tolerated, Low-sodium and Low-cholesterol Diet comment: Soft diet and advance slowly Activity: As tolerated Visit Report/Discharge Packet Instructions: The Mediterranean Diet and Good Health, Ischemic Stroke, Soft Diet, DI for Small Bowel Obstruction Discharge Data Primary Care Provider: Jerry Corral Discharges patient from system. Discharge Date/Time: 01/01/19 13:53 Quality VTE Deep Vein Thrombosis/Pulmonary Embolism Present on Admission: No
[2019-01-01] MEDS: POTASSIUM CHLORIDE 20 MEQ TAB 40 MEQ PO (12:14)
== END 2019-01-01 13:53 | disposition home or self-care (01) | DRG 65 ==
LOC: ED 10:03 → AC 10:17
PROVIDERS: Internal Medicine; Surgery; Admitting Provider Internal Medicine; Emergency Provider Emergency Medicine; PCP Internal Medicine; Visit Provider Internal Medicine
DX: I63.89 Other cerebral infarction (principal); F10.230 Alcohol dependence with withdrawal, uncomplicated; K56.51 Intestinal adhesions [bands], with partial obstruction; I50.20 Unspecified systolic (congestive) heart failure; R47.81 Slurred speech; R29.810 Facial weakness; R20.0 Anesthesia of skin; R25.3 Fasciculation; I48.0 Paroxysmal atrial fibrillation; I10 Essential (primary) hypertension; R29.705 NIHSS score 5; W18.30XA Fall on same level, unspecified, initial encounter; Z87.891 Personal history of nicotine dependence
CPT/HCPCS: 36415; 36592; 70450; 70548; 70553; 71045; 74021; 74022; 74177; 80048; 80053; 80061; 81001; 81003; 82962; 83036; 83605; 83735; 84443; 85025; 85610; 85730; 92526; 92610; 93005; 93041; 93306; 94760; 96361; 96372; 96374; 96375; 96376; 97161; 97165; 97530; 97535; 99231; 99232; 99284; 99285; A9579; J1644; J2060; J2405; J3480; Q9967

== ENCOUNTER → 2019-01-26 10:01 | Outpatient (CLI) | payer MEDICARE, SELFPAY ==
[2018-12-27 12:20] VITALS: BMI 24.8
[2019-01-26 10:44] LABS: BUN Creatinine Ratio 17.5 (6-22); Blood Urea Nitrogen 14 mg/dL (9-20); Carbon Dioxide 27 mmol/L (22-32); Chloride 105 mmol/L (98-107); Estimated Glomerular Filt Rate > 60.0 mL/min (>60); Glucose 72 mg/dL (80-110); HEMOLYSIS < 15 (0-50); Potassium 4.5 mmol/L (3.4-5.1); Sodium 143 mmol/L (137-145)
== END ==
PROVIDERS: Internal Medicine; PCP Internal Medicine; Visit Provider Internal Medicine
DX: I48.0 Paroxysmal atrial fibrillation (principal)
CPT/HCPCS: 36415; 80048

== ENCOUNTER → 2019-11-15 10:02 | Outpatient (CLI) | payer MEDICARE, SELFPAY ==
[2018-12-27 12:20] VITALS: BMI 24.8
[2019-11-15 10:55] LABS: Add Manual Diff / Slide Review NO; Basophils Absolute Auto 100 /uL (0-100); Basophils Percent Auto 1.3 % (0-2); Eosinophils Absolute Auto 100 /uL (0-450); Eosinophils Percent Auto 1.6 % (2-4); Hematocrit 45.9 % (41-53); Lymphocytes Absolute Auto 1600 /uL (1100-4500); Mean Corpuscular HGB Conc 34.7 % (30-36); Mean Corpuscular Hemoglobin 31.7 PG (26-34); Mean Corpuscular Volume 91.2 fL (80-100); Monocytes Absolute Auto 500 /uL (0-900); Neutrophils Absolute Auto 4400 /uL (1500-7000); Neutrophils Percent Auto 66.1 % (50-75); Platelet Count 176 X10^3/uL (150-400); Red Blood Cell Count 5.04 X10^6/uL (4.5-5.9); Red Cell Distribution Width 13.3 % (11.6-14.8); White Blood Cell Count 6.6 X10^3/uL (4.5-11.0)
[2019-11-15 11:22] LABS: Alanine Aminotransferase 20 IU/L (<50); Albumin 4.5 g/dL (3.5-5.0); Albumin Globulin Ratio 1.7 (1.0-2.8); Alkaline Phosphatase 55 U/L (38-126); Aspartate Aminotransferase 28 IU/L (17-59); BUN Creatinine Ratio 21.1 (6-22); Bilirubin Total 1.6 mg/dL (0.2-1.3); Blood Urea Nitrogen 15 mg/dL (9-20); Calcium 10.1 mg/dL (8.4-10.2); Carbon Dioxide 31 mmol/L (22-32); Chloride 104 mmol/L (98-107); Cholesterol 119 mg/dL (140-199); Estimated Glomerular Filt Rate > 60.0 mL/min (>60); Globulin 2.7 g/dL (1.7-4.1); Glucose 92 mg/dL (80-110); HDL Cholesterol 52 mg/dL (40-60); HEMOLYSIS 21 (0-50); LDL Cholesterol Calculated 39 mg/dL (<100); Potassium 4.3 mmol/L (3.4-5.1); Sodium 142 mmol/L (137-145); Total Protein 7.2 g/dL (6.3-8.2); Triglycerides 138 mg/dL (35-150)
== END ==
PROVIDERS: PCP Internal Medicine; Referring Provider Internal Medicine; Visit Provider Internal Medicine
DX: I10 Essential (primary) hypertension (principal); I48.0 Paroxysmal atrial fibrillation; I67.89 Other cerebrovascular disease; E78.2 Mixed hyperlipidemia
CPT/HCPCS: 36415; 80053; 80061; 85025

== ENCOUNTER → 2019-12-13 09:53 | Outpatient (CLI) | payer MEDICARE, SELFPAY ==
[2018-12-27 12:20] VITALS: BMI 24.8
[2019-12-13 11:11] LABS: Alanine Aminotransferase 23 IU/L (<50); Albumin 4.3 g/dL (3.5-5.0); Albumin Globulin Ratio 1.5 (1.0-2.8); Alkaline Phosphatase 55 U/L (38-126); Aspartate Aminotransferase 30 IU/L (17-59); Bilirubin Total 1.3 mg/dL (0.2-1.3); Bilirubin Unconjugated 1.1 mg/dL (0.0-1.1); Globulin 2.9 g/dL (1.7-4.1); HEMOLYSIS < 15 (0-50); Total Protein 7.2 g/dL (6.3-8.2)
== END ==
PROVIDERS: PCP Internal Medicine; Referring Provider Internal Medicine; Visit Provider Internal Medicine
DX: E80.6 Other disorders of bilirubin metabolism (principal)
CPT/HCPCS: 36415; 80076

== ENCOUNTER → 2020-05-30 10:08 | Outpatient (CLI) | payer MEDICARE, SELFPAY ==
[2018-12-27 12:20] VITALS: BMI 24.8
[2020-05-30] MEDS: COVID-19 VACC, Ad26(JANSSEN)/PF 0.5 ML IM (10:16)
== END ==
PROVIDERS: PCP Internal Medicine; Visit Provider Internal Medicine
DX: Z23 Encounter for immunization (principal)
CPT/HCPCS: 0031A; 91303

== ENCOUNTER → 2020-06-11 10:40 | Outpatient (CLI) | payer MEDICARE, SELFPAY ==
[2018-12-27 12:20] VITALS: BMI 24.8
[2020-06-11 12:14] LABS: Add Manual Diff / Slide Review NO; Basophils Absolute Auto 100 /uL (0-100); Basophils Percent Auto 1.4 % (0-2); Eosinophils Absolute Auto 100 /uL (0-450); Eosinophils Percent Auto 2.1 % (2-4); Hematocrit 44.3 % (41-53); Hemoglobin 15.4 g/dL (13.5-17.5); Lymphocytes Absolute Auto 1700 /uL (1100-4500); Lymphocytes Percent Auto 25.4 % (25-40); Mean Corpuscular HGB Conc 34.9 % (30-36); Mean Corpuscular Hemoglobin 32.5 PG (26-34); Mean Corpuscular Volume 93.1 fL (80-100); Monocytes Absolute Auto 600 /uL (0-900); Monocytes Percent Auto 8.4 % (3-14); Neutrophils Absolute Auto 4100 /uL (1500-7000); Neutrophils Percent Auto 62.7 % (50-75); Platelet Count 148 X10^3/uL (150-400); Red Blood Cell Count 4.76 X10^6/uL (4.5-5.9); Red Cell Distribution Width 13.4 % (11.6-14.8); White Blood Cell Count 6.6 X10^3/uL (4.5-11.0)
[2020-06-11 12:50] LABS: Alanine Aminotransferase 24 IU/L (<50); Albumin 4.5 g/dL (3.5-5.0); Albumin Globulin Ratio 1.6 (1.0-2.8); Alkaline Phosphatase 50 U/L (38-126); Aspartate Aminotransferase 32 IU/L (17-59); BUN Creatinine Ratio 20.5 (6-22); Blood Urea Nitrogen 15 mg/dL (9-20); Calcium 9.9 mg/dL (8.4-10.2); Carbon Dioxide 30 mmol/L (22-32); Chloride 104 mmol/L (98-107); Estimated Glomerular Filt Rate > 60.0 mL/min (>60); Globulin 2.8 g/dL (1.7-4.1); Glucose 100 mg/dL (80-110); HEMOLYSIS < 15 (0-50); Sodium 141 mmol/L (137-145); Total Protein 7.3 g/dL (6.3-8.2)
== END ==
PROVIDERS: PCP Internal Medicine; Referring Provider Internal Medicine; Visit Provider Internal Medicine
DX: E80.6 Other disorders of bilirubin metabolism (principal)
CPT/HCPCS: 36415; 80053; 85025

== ENCOUNTER → 2020-08-01 09:53 | Outpatient (CLI) | payer MEDICARE, SELFPAY ==
[2018-12-27 12:20] VITALS: BMI 24.8
[2020-08-01 11:25] LABS: BUN Creatinine Ratio 21.1 (6-22); Blood Urea Nitrogen 15 mg/dL (9-20); Carbon Dioxide 30 mmol/L (22-32); Chloride 97 mmol/L (98-107); Estimated Glomerular Filt Rate > 60.0 mL/min (>60); Glucose 99 mg/dL (80-110); HEMOLYSIS < 15 (0-50); Potassium 4.1 mmol/L (3.4-5.1); Sodium 136 mmol/L (137-145)
== END ==
PROVIDERS: PCP Internal Medicine; Referring Provider Internal Medicine; Visit Provider Internal Medicine
DX: I10 Essential (primary) hypertension (principal)
CPT/HCPCS: 36415; 80048

== ENCOUNTER → 2020-10-08 10:46 | Outpatient (CLI) | payer MEDICARE, SELFPAY ==
[2018-12-27 12:20] VITALS: BMI 24.8
[2020-10-08 12:19] LABS: BUN Creatinine Ratio 24.3 (6-22); Blood Urea Nitrogen 17 mg/dL (9-20); Calcium 9.9 mg/dL (8.4-10.2); Carbon Dioxide 32 mmol/L (22-32); Chloride 91 mmol/L (98-107); Estimated Glomerular Filt Rate > 60.0 mL/min (>60); Glucose 83 mg/dL (80-110); HEMOLYSIS 16 (0-50); Potassium 3.9 mmol/L (3.4-5.1); Sodium 131 mmol/L (137-145)
== END ==
PROVIDERS: PCP Internal Medicine; Referring Provider Internal Medicine; Visit Provider Internal Medicine
DX: I10 Essential (primary) hypertension (principal)
CPT/HCPCS: 36415; 80048

== ENCOUNTER → 2022-04-15 10:03 | Outpatient (CLI) | payer MEDICARE, SELFPAY ==
[2018-12-27 12:20] VITALS: BMI 24.8
[2022-04-15 10:47] LABS: Hematocrit 39.5 % (41-53); Mean Corpuscular HGB Conc 35.5 % (30-36); Mean Corpuscular Hemoglobin 33.1 PG (26-34); Mean Corpuscular Volume 93.3 fL (80-100); Platelet Count 200 X10^3/uL (150-400); Red Blood Cell Count 4.24 X10^6/uL (4.5-5.9); Red Cell Distribution Width 12.7 % (11.6-14.8); White Blood Cell Count 7.4 X10^3/uL (4.5-11.0)
[2022-04-15 10:59] LABS: Alanine Aminotransferase 20 IU/L (<50); Albumin 4.6 g/dL (3.5-5.0); Albumin Globulin Ratio 1.4 (1.0-2.8); Alkaline Phosphatase 48 U/L (38-126); Aspartate Aminotransferase 25 IU/L (17-59); Bilirubin Total 1.8 mg/dL (0.2-1.3); Blood Urea Nitrogen 16 mg/dL (9-20); Calcium 9.9 mg/dL (8.4-10.2); Carbon Dioxide 32 mmol/L (22-32); Chloride 93 mmol/L (98-107); Cholesterol 117 mg/dL (140-199); Estimated Glomerular Filt Rate > 60 mL/min (>60); Globulin 3.2 g/dL (1.7-4.1); Glucose 101 mg/dL (80-110); HDL Cholesterol 43 mg/dL (40-60); HEMOLYSIS < 15 (0-50); LDL Cholesterol Calculated 56 mg/dL (<100); Potassium 3.3 mmol/L (3.4-5.1); Sodium 136 mmol/L (137-145); Total Protein 7.8 g/dL (6.3-8.2); Triglycerides 90 mg/dL (35-150)
[2022-04-15 11:30] LABS: TSH w/ Reflex to FT4 1.69 uIU/mL (0.47-4.68)
== END ==
PROVIDERS: PCP Internal Medicine; Referring Provider Internal Medicine; Visit Provider Internal Medicine
DX: E78.2 Mixed hyperlipidemia (principal); I10 Essential (primary) hypertension; I48.0 Paroxysmal atrial fibrillation; I67.9 Cerebrovascular disease, unspecified; Z85.038 Personal history of other malignant neoplasm of large intestine
CPT/HCPCS: 36415; 80053; 80061; 84443; 85027

== ENCOUNTER → 2022-06-30 10:40 | Outpatient (CLI) | payer MEDICARE, SELFPAY ==
[2018-12-27 12:20] VITALS: BMI 24.8
[2022-06-30 12:01] LABS: Alanine Aminotransferase 20 IU/L (<50); Albumin 4.4 g/dL (3.5-5.0); Albumin Globulin Ratio 1.6 (1.0-2.8); Alkaline Phosphatase 42 U/L (38-126); Aspartate Aminotransferase 26 IU/L (17-59); BUN Creatinine Ratio 19.1 (6-22); Bilirubin Total 1.1 mg/dL (0.2-1.3); Blood Urea Nitrogen 13 mg/dL (9-20); Calcium 9.3 mg/dL (8.4-10.2); Carbon Dioxide 30 mmol/L (22-32); Chloride 89 mmol/L (98-107); Estimated Glomerular Filt Rate > 60 mL/min (>60); Globulin 2.7 g/dL (1.7-4.1); Glucose 99 mg/dL (80-110); HEMOLYSIS < 15 (0-50); Sodium 128 mmol/L (137-145); Total Protein 7.1 g/dL (6.3-8.2)
== END ==
PROVIDERS: PCP Internal Medicine; Referring Provider Internal Medicine; Visit Provider Internal Medicine
DX: E87.6 Hypokalemia (principal)
CPT/HCPCS: 36415; 80053

== ENCOUNTER → 2022-07-17 10:01 | Outpatient (CLI) | payer MEDICARE, SELFPAY ==
[2018-12-27 12:20] VITALS: BMI 24.8
[2022-07-17 15:07] LABS: Blood Urea Nitrogen 15 mg/dL (9-20); Calcium 9.5 mg/dL (8.4-10.2); Carbon Dioxide 31 mmol/L (22-32); Chloride 92 mmol/L (98-107); Estimated Glomerular Filt Rate > 60 mL/min (>60); Glucose 83 mg/dL (80-110); HEMOLYSIS < 15 (0-50); Potassium 3.9 mmol/L (3.4-5.1); Sodium 130 mmol/L (137-145)
== END ==
PROVIDERS: PCP Internal Medicine; Referring Provider Internal Medicine; Visit Provider Internal Medicine
DX: E87.1 Hypo-osmolality and hyponatremia (principal)
CPT/HCPCS: 36415; 80048

== ENCOUNTER → 2022-11-03 10:52 | Outpatient (CLI) | payer MEDICARE, SELFPAY ==
[2018-12-27 12:20] VITALS: BMI 24.8
[2022-11-03 13:13] LABS: Aspartate Aminotransferase 26 IU/L (17-59); BUN Creatinine Ratio 21.7 (6-22); Blood Urea Nitrogen 20 mg/dL (9-20); Calcium 9.7 mg/dL (8.4-10.2); Carbon Dioxide 31 mmol/L (22-32); Chloride 95 mmol/L (98-107); Cholesterol 115 mg/dL (140-199); Estimated Glomerular Filt Rate > 60 mL/min (>60); Glucose 99 mg/dL (80-110); HDL Cholesterol 47 mg/dL (40-60); HEMOLYSIS < 15 (0-50); LDL Cholesterol Calculated 45 mg/dL (<100); Potassium 3.9 mmol/L (3.4-5.1); Sodium 134 mmol/L (137-145); Triglycerides 115 mg/dL (35-150)
== END ==
PROVIDERS: PCP Internal Medicine; Referring Provider Internal Medicine; Visit Provider Internal Medicine
DX: E78.2 Mixed hyperlipidemia (principal); I10 Essential (primary) hypertension
CPT/HCPCS: 36415; 80048; 80061; 84450

== ENCOUNTER → 2023-04-19 07:03 | Outpatient (CLI) | payer MEDICARE, SELFPAY ==
[2018-12-27 12:20] VITALS: BMI 24.8
[2023-04-19 07:51] LABS: Hemoglobin 12.1 g/dL (13.5-17.5); Mean Corpuscular HGB Conc 35.7 % (30-36); Mean Corpuscular Hemoglobin 33.7 PG (26-34); Mean Corpuscular Volume 94.3 fL (80-100); Platelet Count 200 X10^3/uL (150-400); Red Blood Cell Count 3.61 X10^6/uL (4.5-5.9); Red Cell Distribution Width 13.6 % (11.6-14.8); White Blood Cell Count 6.2 X10^3/uL (4.5-11.0)
[2023-04-19 08:37] LABS: Alanine Aminotransferase 15 IU/L (<50); Albumin 4.1 g/dL (3.5-5.0); Albumin Globulin Ratio 1.6 (1.0-2.8); Alkaline Phosphatase 50 U/L (38-126); Aspartate Aminotransferase 21 IU/L (17-59); Blood Urea Nitrogen 11 mg/dL (9-20); Calcium 9.7 mg/dL (8.4-10.2); Carbon Dioxide 29 mmol/L (22-32); Chloride 92 mmol/L (98-107); Cholesterol 90 mg/dL (140-199); Estimated Glomerular Filt Rate > 60 mL/min (>60); Globulin 2.6 g/dL (1.7-4.1); Glucose 93 mg/dL (80-110); HDL Cholesterol 43 mg/dL (40-60); HEMOLYSIS < 15 (0-50); LDL Cholesterol Calculated 34 mg/dL (<100); Potassium 3.9 mmol/L (3.4-5.1); Sodium 128 mmol/L (137-145); Total Protein 6.7 g/dL (6.3-8.2); Triglycerides 65 mg/dL (35-150)
[2023-04-19 09:00] LABS: TSH w/ Reflex to FT4 1.63 uIU/mL (0.47-4.68)
== END ==
LOC: LAB 07:05
PROVIDERS: PCP Internal Medicine; Referring Provider Internal Medicine; Visit Provider Internal Medicine
DX: I50.22 Chronic systolic (congestive) heart failure (principal); E78.2 Mixed hyperlipidemia
CPT/HCPCS: 36415; 80053; 80061; 84443; 85027

== ENCOUNTER → 2023-06-03 10:30 | Outpatient (CLI) | payer MEDICARE, SELFPAY ==
[2018-12-27 12:20] VITALS: BMI 24.8
--- NOTE | 2023-06-03 10:33 | DI.RAD.S_ITS ---
PROCEDURE: XR HIP W PEL IF DONE RT 2V INDICATIONS: right hip pain TECHNIQUE: AP pelvis with lateral view(s) of the right hip(s). COMPARISON: [facility], CR, XR ABDOMEN 3V, 12/31/2018, 8:59. FINDINGS: Bones: No fractures or dislocations. Severe right hip joint space narrowing. Acetabular roof sclerosis. [id number] left hip joint space narrowing. Pelvic ring appears intact. No suspicious bony lesions. Soft tissues: The visualized bowel gas pattern is normal. No suspicious soft tissue calcifications. Multiple pelvic clips. IMPRESSION: Severe right hip DJD, progressed compared to 2019. Dictated by: Yusef James M.D. on 06/03/2023 at 22:05 Approved by: Yusef Jaems M.D. on 06/03/2023 at 22:07
== END ==
LOC: RAD 10:32
PROVIDERS: PCP Internal Medicine; Referring Provider Internal Medicine; Visit Provider Internal Medicine
DX: M16.11 Unilateral primary osteoarthritis, right hip (principal); M25.551 Pain in right hip
CPT/HCPCS: 73502

== ENCOUNTER → 2023-11-04 09:41 | Outpatient (CLI) | payer MEDICARE, SELFPAY ==
[2018-12-27 12:20] VITALS: BMI 24.8
[2023-11-04 11:14] LABS: Hematocrit 38.9 % (41-53); Hemoglobin 13.6 g/dL (13.5-17.5); Mean Corpuscular HGB Conc 34.9 % (30-36); Mean Corpuscular Hemoglobin 32.9 PG (26-34); Mean Corpuscular Volume 94.4 fL (80-100); Platelet Count 206 X10^3/uL (150-400); Red Blood Cell Count 4.13 X10^6/uL (4.5-5.9); Red Cell Distribution Width 12.9 % (11.6-14.8); White Blood Cell Count 6.9 X10^3/uL (4.5-11.0)
[2023-11-04 11:50] LABS: HEMOLYSIS < 15 (0-50); Iron 114 ug/dL (49-181)
[2023-11-04 11:55] LABS: Alanine Aminotransferase 15 IU/L (<50); Albumin 4.4 g/dL (3.5-5.0); Albumin Globulin Ratio 1.7 (1.0-2.8); Alkaline Phosphatase 56 U/L (38-126); Aspartate Aminotransferase 23 IU/L (17-59); BUN Creatinine Ratio 21.1 (6-22); Bilirubin Total 0.9 mg/dL (0.2-1.3); Blood Urea Nitrogen 15 mg/dL (9-20); Carbon Dioxide 24 mmol/L (22-32); Chloride 97 mmol/L (98-107); Cholesterol 108 mg/dL (140-199); Estimated Glomerular Filt Rate > 60 mL/min (>60); Globulin 2.6 g/dL (1.7-4.1); Glucose 92 mg/dL (80-110); HDL Cholesterol 44 mg/dL (40-60); HEMOLYSIS < 15 (0-50); LDL Cholesterol Calculated 42 mg/dL (<100); Potassium 4.7 mmol/L (3.4-5.1); Sodium 130 mmol/L (137-145); Triglycerides 108 mg/dL (35-150)
[2023-11-04 11:58] LABS: Transferrin 260 mg/dL (206-381)
[2023-11-04 12:27] LABS: Ferritin 147 ng/mL (18-464)
[2023-11-04 12:43] LABS: Vitamin B12 277 pg/mL (239-931)
[2023-11-06 03:07] LABS: Percent Iron Saturation 34 % (20-50); Total Iron Binding Capacity 335 ug/dL (261-462)
== END ==
PROVIDERS: PCP Internal Medicine; Referring Provider Internal Medicine; Visit Provider Internal Medicine
DX: I50.22 Chronic systolic (congestive) heart failure (principal); D64.9 Anemia, unspecified; E53.8 Deficiency of other specified B group vitamins
CPT/HCPCS: 36415; 80053; 80061; 82607; 82728; 83540; 83550; 85027

== ENCOUNTER → 2025-03-04 10:46 | Outpatient (CLI) | payer MEDICARE, SELFPAY ==
[2018-12-27 12:20] VITALS: BMI 24.8
--- NOTE | 2025-03-04 10:47 | DI.MRI.S_ITS ---
PROCEDURE: MR HIP RT WO CON INDICATIONS: right hip pain, severe OA TECHNIQUE: Noncontrast coronal T1 spin echo and STIR through the bony pelvis. Coronal and axial T2 fast spin echo with fat saturation, sagittal T1 spin echo, and oblique axial T2 fast spin echo with fat saturation through the hip. COMPARISON: [facility], CR, ORTHO-XR HIP RT 2V, 12/26/2024, 14:31. FINDINGS: Image quality: Excellent. Bones and joints: Heterogeneous marrow signal with patchy marrow T2 hyperintensity of the visualized lower lumbar spine, the sacrum, and bilateral iliac bones, most pronounced at bilateral posterior iliac wings, nonspecific. Severe degenerative changes of the right hip with marked marrow edema of the superior acetabulum, in the femoral head. Moderate right hip effusion. Mild superolateral subluxation of the right femoral head with respect to the right acetabulum. No acute fracture about the right hip. Mild degenerative changes of the left hip. Trace left hip effusion. Tendons and ligaments: The left iliopsoas, tendon is intact. Mild muscle edema of the iliopsoas, adductormuscle, likely representing mild muscle strain. Low-grade tear of the right hamstring tendon origin, at the ischial tuberosity. The right gluteal minimus and medius tendon are unremarkable. Labrum and cartilage: Circumferential labral tear of the right hip. Large complex cyst about the anterior superior labrum, measuring 3.7 cm on axial dimension. Soft tissues: Left lower quadrant colostomy. IMPRESSION: 1. Heterogeneous marrow signal with patchy marrow T2 hyperintensity, most pronounced at bilateral posterior iliac wings, nonspecific. Recommend correlation with CBC. Please note, underlying fracture of bilateral posterior iliac wing cannot be excluded. Recommend further evaluation with sacrum MRI. 2. Severe degenerative changes of the right hip with marked marrow edema, moderate right hip effusion and large complex paralabral cyst. 3. Mild muscle strain of the right iliopsoas and adductor muscle. 4. Low-grade tear of the right hamstring tendon. Dictated by: Nella Hudson M.D. on 03/05/2025 at 13:53 Approved by: Nella Hudson M.D. on 03/05/2025 at 14:07
== END ==
LOC: MRI 10:46
PROVIDERS: PCP Internal Medicine; Referring Provider Physical Medicine & Rehabilitation; Visit Provider Physical Medicine & Rehabilitation
DX: M16.11 Unilateral primary osteoarthritis, right hip (principal); S76.011A Strain of muscle, fascia and tendon of right hip, initial encounter; M25.451 Effusion, right hip; M25.551 Pain in right hip; M24.851 Other specific joint derangements of right hip, not elsewhere classified
CPT/HCPCS: 73721